=== PATIENT | female | born 1955 | race Caucasian/White ===

== ENCOUNTER 2016-04-30 12:42 | Emergency (ER) | payer OTHER ==
[~2016-04-30] VITALS: Ht 162.6 cm; Wt 90.7 kg
[~2016-04-30 12:42] MED LIST: ALEVE220 M1 PO; AMOXIL500 MG PO; ATENOLOL50 M1 PO; LOMOTIL 2.5-0.1 EACH PO; NASACORT A55 MCG/Ac1 NAS; PERCOCET 5-3251 EACH PO; PRIMIDONE50 M1 PO; ROBITUSSIN W/CO10 ML PO; TRAMADOL50 MG PO; VENLAFAXINE H37.5 M3 PO; ZITHROMAX Z-PA250 M1 PO
[2016-04-30 13:41] LABS: ABSOLUTE BASOPHIL COUNT 0 /CUMM (0.0-0.2); ABSOLUTE EOSINOPHIL COUNT 0.1 /CUMM (0.0-0.7); ABSOLUTE GRANULOCYTE CT 4.7 /CUMM (1.4-6.5); ABSOLUTE LYMPH COUNT 2.6 /CUMM (1.2-3.4); ABSOLUTE MONOCYTE COUNT 0.5 /CUMM (0.10-0.60); BASOPHIL % 0.5 % (0.0-2.0); EOSINOPHIL % 1.5 % (0-5); GRANULOCYTE % 59.2 % (42.2-75.2); HEMATOCRIT 40.6 % (37-47); MEAN CORPUSCULAR HGB 30.1 PG (27.0-31.0); MEAN CORPUSCULAR HGB CONC 33.1 G/DL (33.0-37.0); MEAN CORPUSCULAR VOLUME 90.9 FL (81.0-99.0); MEAN PLATELET VOLUME 8.3 FL (7.4-10.4); PLATELET COUNT 243 /CUMM (130-400); RBC DISTRIBUTION WIDTH 12.8 % (11.5-14.5); RED BLOOD CELL CT 4.46 /CUMM (4.20-5.40); WHITE BLOOD CELL COUNT 7.9 /CUMM (4.8-10.8)
--- NOTE | 2016-04-30 13:49 | ED DYSPNEA/ASTHMA COMPLAINT ---
History of Present Illness General Chief Complaint: Dyspnea (COPD, CHF, Other) Stated Complaint: PT IS HAVING A PROBLEM BREATHING Source: patient Exam Limitations: no limitations Vital Signs & Intake/Output Vital Signs & Intake/Output Vital Signs Date Time Temp Pulse Resp B/P Pulse O2 O2 Flow FiO2 Ox Delivery Rate 04/30 1435 93 04/30 1430 98.0 84 20 134/78 92 Room Air 04/30 1401 97.0 80 20 133/78 96 Nasal 1.0L Cannula 04/30 1349 98 Nasal 1.0L Cannula 04/30 1336 97.9 78 20 167/85 95 Nasal 2.0L Cannula 04/30 1329 75 22 97 Nasal 2.0L Cannula 04/30 1321 97.0 80 16 138/65 98 Room Air 04/30 1247 97.1 96 20 180/100 90 Room Air Allergies Coded Allergies: venom-honey bee (bee venom (honey bee)) (Severe, THROAT SWELLING 12/06/15) Reconcile Medications Atenolol 50 MG TABLET 1 TAB PO DAILY HEART/BP (Reported) Ipratropium/Albuterol Sulfate (Combivent Respimat Inhal [place]) 20 MCG-100 MCG/ ACTUATION MIST.INHAL 2-4 INH INH Q6 PRN trouble breathing Naproxen Sodium (Aleve) 220 MG CAPSULE 1 CAP PO PRN PAIN (Reported) Prednisone (Deltasone) 20 MG TABLET 3 TAB PO DAILY TROUBLE BREATHING BEGIN TOMORROW Venlafaxine HCl 37.5 MG TABLET 1 TAB PO DAILY ANXIETY/PANIC ATTACKS (Reported ) Triage Note: PT STATES THAT SHE HAS HAD A COUGH FOR ABOUT 3 MONTHS , NON PRODUCTIVE, STATES THAT ABOUT 1 HOUR AGO SHE BECAME VERY SOB AND HAS NOT BEEN ABLE TO CATCH HER BREATH, DENIES CP. O2 SAT 90 % ON RA. Triage Nurses Notes Reviewed? yes Onset: UNSURE IF GRADUAL OR SUDDEN Duration: week(s):, continues in ED, getting worse, intermittent HPI: Patient presents for evaluation of worsening dyspnea. Patient states she has had a nonproductive cough for the past few months. Roughly 1 hour prior to arrival patient states she had sudden increase in her shortness of breath, it becoming severe. Patient states there was no unusual exertion at the time she was simply engaging in ordinary daily activities. SHe denies any associated chest pain. Past History Travel History Traveled to [place] past 21 day No Medical History Any Pertinent Medical History? 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 FH: lung cancer MOTHER, . FH: Alzheimers disease SISTER FH: lupus Hx Contributory? No Review of Systems Review of Systems Constitutional: Reports: no symptoms. EENTM: Reports: no symptoms. Respiratory: Reports: see HPI. Cardiovascular: Reports: no symptoms. GI: Reports: no symptoms. Genitourinary: Reports: no symptoms. Musculoskeletal: Reports: no symptoms. Skin: Reports: no symptoms. Neurological/Psychological: Reports: no symptoms. Hematologic/Endocrine: Reports: no symptoms. Immunologic/Allergic: Reports: no symptoms. All Other Systems: Reviewed and Negative Physical Exam Physical Exam Respiratory: SEE BELOW Comments: Gen.: Well-nourished, well-developed, no acute respiratory distress. Head: Normocephalic, atraumatic. Eyes: Normal inspection bilaterally Ears: Normal inspection bilaterally Nose: Normal inspection Throat/mouth : Moist mucosa Neck: Supple, full range of motion, no goiter Heart: Regular rate and rhythm, no murmurs rubs or gallops Lungs: Clear to auscultation bilaterally with normal air entry Chest: Nontender Back: Normal range of motion Abdomen: Soft, nontender, nondistended, normal bowel sounds Extremities: Normal range of motion grossly, equal radial pulses, no cyanosis clubbing or edema Neurologic: Cranial nerves grossly intact, speech is clear Skin: warm and dry Psychiatric: Calm, cooperative, no apparent delusions or hallucinations Core Measures ACS in differential dx? No Severe Sepsis Present: No Septic Shock Present: No Progress Differential Diagnosis: asthma, bronchitis, CHF, COPD, pneumonia Plan of Care: Orders Procedure Date/time Status Telemetry/Rubber Turner 04/30 1321 Active TROPONIN LEVEL 04/30 1321 Complete MAGNESIUM 04/30 1321 Complete CBC WITHOUT DIFFERENTIAL 04/30 1321 Complete B-TYPE NATRIURETIC PEP (BNP) 04/30 1321 Complete BASIC METABOLIC PANEL 04/30 1321 Complete EKG 04/30 1302 Active Laboratory Tests 04/30/16 1324: Anion Gap 12, Estimated GFR > 60, BUN/Creatinine Ratio 26.7 H, Glucose 140 H, Calcium 9.8, Magnesium 1.5 L, Troponin I < 0.01, Ebp-N-Bqhorneiizi Pept 334 H, CBC w Diff NO MAN DIFF REQ, RBC 4.46, MCV 90.9, MCH 30.1, RDW 12.8, MPV 8.3, Gran % 59.2, Lymphocytes % 33.0, Monocytes % 5.8, Eosinophils % 1.5, Basophils % 0.5, Absolute Granulocytes 4.7, Absolute Lymphocytes 2.6, Absolute Monocytes 0.5 , Absolute Eosinophils 0.1, Absolute Basophils 0, PUBS MCHC 33.1 Initial ED EKG: NSR, rate (74), no ST T wave changes Comments: 04/30/2016 2:42:12 PM I have updated Darlyn on her test results. She is feeling better after her nebulizer treatment. Room air oxygen saturation 95% and reevaluation of the lungs shows improved air entry and resolution of wheezing. Patient's nurse will check up and ambulatory pulse ox. Patient will have another nebulizer treatment in the emergency department if she becomes hypoxic with ambulation. Otherwise plan change to Combivent inhaler with albuterol as rescue and five-day course of steroids. 04/30/2016 2:55:58 PM Darlyn maintained at 93% oxygen saturation while ambulating and felt no dyspnea. Departure Departure Disposition: HOME OR SELF CARE Condition: Stable Clinical Impression Primary Impression: Bronchospasm Referrals: GINI WALKER MD (PCP/Family) Additional Instructions: Combivent inhaler as prescribed. Use your albuterol inhaler in between Combivent doses if necessary. Prednisone as prescribed. Follow-up with your primary care physician tomorrow for reevaluation. Return if any concerns or sudden worsening. Please note that there might be incidental findings in your evaluation that are unrelated to the current emergency department visit. Please notify your primary care doctor about this emergency department visit in order to obtain and review all of the testing performed so that these incidental findings can be monitored as needed. If you had an x-ray performed, please understand that some fractures may not be seen on the initial set of x-rays. If your symptoms persist you might need a repeat set of x-rays to check for such a fracture. If you had a laceration evaluated, please understand that foreign bodies such as glass or wood may not be visible to the naked eye or on plain x-rays. If the wound becomes red, swollen, increasingly more painful or if there is any drainage from the wound, please have it reevaluated by a physician for the possibility of a retained foreign body. Thank you for choosing the [facility] for your care. It was a pleasure to serve you today. Bernardo Edwards M.D. [facility] Departure Forms: Customer Survey General Discharge Information Prescriptions: Current Visit Scripts Ipratropium/Albuterol Sulfate (Combivent Respimat Inhal [place]) 2-4 INH INH Q6 PRN trouble breathing #1 INHAL Prednisone (Deltasone) 3 TAB PO DAILY #12 TAB BEGIN TOMORROW Critical Care Note Critical Care Note Critical Care Time: non-applicable
--- NOTE | 2016-04-30 14:14 | RADIOLOGY REPORT ---
EXAMINATION: XR PORTABLE CHEST CLINICAL INFORMATION: COPD, CHF, mass, infiltrate, effusion. Cough for months, dyspnea. COMPARISON: None TECHNIQUE: Portable AP view of the chest was obtained. FINDINGS: The cardiomediastinal silhouette is within normal limits. Lung volumes are low. The lungs are clear with no consolidation or effusion. IMPRESSION: Low lung volumes. No acute findings.
[2016-04-30 14:30] VITALS: BP 134/78
[2016-04-30] MEDS ORDERED: DELTASONE20 MG PO (15:04)
[2016-04-30] MEDS ORDERED: COMBIVENT RESPIM4 GM INH (15:04)
== END 2016-04-30 15:17 ==
LOC: ERH 12:42
PROVIDERS: Emergency Medicine
DX: J98.01 Acute bronchospasm (principal)
CPT/HCPCS: 1263; 93005; 93010; 96374; J2930

== ENCOUNTER 2016-07-30 14:19 | Emergency (ER) | payer OTHER ==
[~2016-07-30] VITALS: Ht 160 cm; Wt 79.4 kg
[~2016-07-30 14:19] MED LIST changes: +COMBIVENT RESPIM4 GM INH; +DELTASONE20 MG PO
--- NOTE | 2016-07-30 15:04 | RADIOLOGY REPORT ---
EXAMINATION: XR KNEE, LEFT CLINICAL INFORMATION: Pain for one week status post fall COMPARISON: None TECHNIQUE: Four views of the left knee. FINDINGS: No acute fracture or subluxation. Mild medial compartment joint space narrowing. No joint effusion. Varicose veins are noted superficially. IMPRESSION: No acute osseous abnormality. Mild medial compartment joint space narrowing.
--- NOTE | 2016-07-30 15:43 | ED UPPER/LOWER EXTREMITY COMPL ---
History of Present Illness General Chief Complaint: Lower Extremity Injury Stated Complaint: LFT KNEE INJURY Source: patient Exam Limitations: no limitations Vital Signs & Intake/Output Vital Signs & Intake/Output Vital Signs Date Time Temp Pulse Resp B/P B/P Pulse O2 O2 Flow FiO2 Mean Ox Delivery Rate 07/30 1551 96.8 65 12 145/78 95 Room Air 07/30 1427 97.6 91 14 146/89 95 Room Air Allergies Coded Allergies: venom-honey bee (bee venom (honey bee)) (Severe, THROAT SWELLING 12/06/15) Reconcile Medications Atenolol 50 MG TABLET 1 TAB PO DAILY HEART/BP (Reported) Ipratropium/Albuterol Sulfate (Combivent Respimat Inhal [place]) 20 MCG-100 MCG/ ACTUATION MIST.INHAL 2-4 INH INH Q6 PRN trouble breathing Meloxicam (Mobic) 15 MG TABLET 1 TAB PO DAILY PRN PAIN/INFLAMMATION Naproxen Sodium (Aleve) 220 MG CAPSULE 1 CAP PO PRN PAIN (Reported) Prednisone (Deltasone) 20 MG TABLET 3 TAB PO DAILY TROUBLE BREATHING BEGIN TOMORROW Venlafaxine HCl 37.5 MG TABLET 1 TAB PO DAILY ANXIETY/PANIC ATTACKS (Reported ) Triage Note: 61 Y/O FEMALE FELL ON IT IN MARCH, AGAIN 1 WEEK AGO AND AGAIN THIS PAST WEDNESDAY. REPORTS SWELLING AROUND KNEECAP AND PAIN DOWN LEG. SMALL SCABBED ABRASIONS NOTED TO KNEECAP. DECLINES OFFER OF MEDS, REQUESTING XRAY Triage Nurses Notes Reviewed? yes Onset: Abrupt Duration: constant Timing: recent history Severity: moderate Severity Numbers: 5 Method of Injury: direct blow, fall HPI: Patient is a 61-year-old female who presents emergency ROOM stating that last week she was wearing platform shoes in which she lost her footing and fell forward striking the left anterior aspect of her knee to the ground. Patient states that 2 days ago a similar event happened where she fell again tripped on her feet where she again complained of localized left anterior knee pain. Patient did however ambulate to the emergency room. (JOHN DAMON,NAIN) Past History Travel History Traveled to [place] past 21 day No Medical History Any Pertinent Medical History? 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 FH: lung cancer MOTHER, . FH: Alzheimers disease SISTER FH: lupus Hx Contributory? No (NAIN DUNNE) Review of Systems Review of Systems Constitutional: Reports: no symptoms. EENTM: Reports: no symptoms. Respiratory: Reports: no symptoms. Cardiovascular: Reports: no symptoms. Gastrointestinal/Abdominal: Reports: no symptoms. Genitourinary: Reports: no symptoms. Musculoskeletal: Reports: see HPI, joint pain. Skin: Reports: no symptoms. Neurological/Psychological: Reports: no symptoms. Hematologic/Endocrine: Reports: no symptoms. Immunological: Reports: no symptoms. All Other Systems: Reviewed and Negative (NAIN DUNNE) Physical Exam Physical Exam General Appearance: no apparent distress, alert, comfortable, obese Neurologic/Tendon: normal sensation, normal motor functions, normal tendon functions, responds to pain, no evidence tendon injury, no pulse deficit Comments: Well-developed well-nourished no apparent distress. HEENT: Atraumatic, extraocular motion intact Neck: Supple, no lymphadenopathy Back: Nontender Respiratory: No respiratory distress Extremities: Left hip normal inspection nontender straight leg raise was performed without pain Left knee mild skin abrasion noted patellar point tenderness noted, full active range of motion noted negative valgus stress test negative varus stress test negative anterior drawer test negative posterior drawer test Left lower extremity dermatomes intact pedal pulse +2 Neuro: Alert and oriented x3 Psych: Mood affect normal, normal memory normal judgment. (NAIN DUNNE) Progress Differential Diagnosis: arterial insufficiency, compartment syndrome, contusion, dislocation, DVT, fracture, gout, septic arthritis, sprain, tendon injury Plan of Care: No osseous injury noted FROM XRAYS, SKIN intact no concern of ligamentous injury. Patient had normal steady gait on discharge. However patient was given a cane for fall prevention William wrap was applied to left knee prepatellar neurovascular was intact Diagnostic Imaging: Viewed by Me: Radiology Read. Radiology Impression: no acute abnormality, no fracture Comments: PATIENT: INEZ EDWARDS PRESENT AGE: 61 PATIENT ACCOUNT NO: [id number] : 55 LOCATION: [facility] ORDERING PHYSICIAN: GISELA HERNANDEZ MD SERVICE DATE: 07/30/16 EXAM TYPE: RAD - XRY-KNEE COMPLETE LEFT EXAMINATION: XR KNEE, LEFT CLINICAL INFORMATION: Pain for one week status post fall COMPARISON: None TECHNIQUE: Four views of the left knee. FINDINGS: No acute fracture or subluxation. Mild medial compartment joint space narrowing. No joint effusion. Varicose veins are noted superficially. IMPRESSION: No acute osseous abnormality. Mild medial compartment joint space narrowing. DICTATED BY: CARLOS SCANLON,YAMILET DATE/TIME DICTATED:07/30/161458 RADIOLOGY CT TECHNOLOGIST:JAIRO (NAIN DUNNE) Departure Departure Disposition: HOME OR SELF CARE Condition: Stable Clinical Impression Primary Impression: Left knee pain Referrals: GINI WALKER MD (PCP/Family) Additional Instructions: As discussed begin using the William wrap for swelling. Begin icing the area directly 20 minutes every 2 hours. Begin using the prescription of a cane for fall prevention, this prescription was given obtained at a caregivers non [facility] to her. Begin the prescription on meloxicam for pain and inflammation, per prescription is waiting at [facility]. If no better in one week follow-up with orthopedic Dr. Hui. If symptoms worsen return to emergency room Departure Forms: Customer Survey General Discharge Information Prescriptions: Current Visit Scripts Meloxicam (Mobic) 1 TAB PO DAILY PRN PAIN/INFLAMMATION #15 TAB (NAIN DUNNE) PA/KICK PLATE INSTALLER Co-Sign Statement Statement: ED Attending supervision documentation- [] I saw and evaluated the patient. I have also reviewed all the pertinent lab results and diagnostic results. I agree with the findings and the plan of care as documented in the PA's/KICK PLATE INSTALLER's documentation. [X] I have reviewed the ED Record and agree with the PA's/KICK PLATE INSTALLER's documentation. [] Additions or exceptions (if any) to the PAs/KICK PLATE INSTALLER's note and plan are summarized below: [] (DAVID SCANLON,GISELA Sheets)
[2016-07-30 15:51] VITALS: BP 145/78
[2016-07-30] MEDS ORDERED: MOBIC15 M1 PO (16:14)
== END 2016-07-30 16:25 ==
LOC: ERH 14:19
DX: M25.562 Pain in left knee (principal)
CPT/HCPCS: 73562-LT

== ENCOUNTER 2017-03-08 15:03 | Inpatient (IN) | payer OTHER ==
[~2017-03-08] VITALS: Ht 157.5 cm; Wt 81.8 kg
[~2017-03-08 15:03] MED LIST changes: +CLOTRIMAZOLE15 GM TOP; +CYCLOBENZAPRINE10 M1 PO; +DIFLUCAN150 M1 PO; +HYDROXYZINE PAM25 M2 PO; +IBUPROFEN400 M1 PO; +KEFLEX500 M1 PO; +MOBIC15 M1 PO
--- NOTE | 2017-03-08 15:27 | ED PSYCHIATRIC COMPLAINT ---
History of Present Illness General Chief Complaint: Psychiatric Related Complaint Stated Complaint: BIBA FOR PSYCH EVAL Source: patient Exam Limitations: no limitations Vital Signs & Intake/Output Vital Signs & Intake/Output Vital Signs Date Time Temp Pulse Resp B/P B/P Pulse O2 O2 Flow FiO2 Mean Ox Delivery Rate 03/09 0848 97.5 70 18 164/72 03/09 0817 70 18 164/72 98 Room Air 03/09 0633 97.5 72 18 199/788 100 Room Air 03/08 1959 99.5 69 9 138/78 99 Room Air 03/08 1620 Room Air 03/08 1512 99.0 87 19 162/80 98 Room Air ED Intake and Output 03/09 0000 03/08 1200 Intake Total Output Total Balance Patient 180 lb Weight Weight Reported by Patient Measurement Method Allergies Coded Allergies: venom-honey bee (bee venom (honey bee)) (Severe, THROAT SWELLING 12/06/15) Triage Note: PT D[facility]ELJohnny FROM [facility]. [facility] AND [facility], PT IS CURRENTLY HOMELESS. WHEN PT WENT BACK TO GET HER MEDS THE MEDS WERE GONE AND SHE HAS NOT TAKEN ANY MEDS FOR 1 WEEK. PT SON 1 WEEK AGO AND PT IS UPSET THAT SHE DOES NOT KNOW INFO FOR SERVICE AND NO ONE IS TELLING HER ANYTHING. PT IS HI TOWARDS THE PEOPLE THAT WONT GIVE HER INFO AND HER NEIGHBORS. PT DENIES SI. PT STATES SHE NEEDS HELP TO GET BACK TAKING HER MEDS AND HELP FOR PLACEMENT IN A HOME. Triage Nurses Notes Reviewed? yes Onset: Abrupt Duration: day(s): (2), changing over time, continues in ED Timing: single episode today Severity: moderate, severe Associated Symptoms: anxiety, homicidal ideation LMP (ages 10-50): post menopausal : No Patient currently breastfeeds: No HPI: 61-year-old female past medical history of essential tremor, hypertension, anxiety, panic disorder Rout in by ambulance for a psychiatric evaluation. Patient states that she was recently evicted from her house. Patient was living with her son who kicked her out of her house. Her son 6 days ago so patient moved back into her house and then she was evicted by her . Patient is currently homeless and very upset about the of her son. She does not like the way the state is being handled. She made homicidal statements towards the people handling her son estate. She also reports that she lost her medications and has not taken anything in over a week. She denies any suicidal ideation or hallucinations. She does report some substernal chest tightness that has been present for the past several days since this is been going on. It is not worsened on exertion. No shortness of breath hemoptysis lower extremity edema. No significant cardiac history. She does not drink smoke or use any drugs. Patient is not papered she is here voluntarily. (Boyd Rausch) Reconcile Medications Atenolol 50 MG TABLET 1 TAB PO DAILY HEART/BP (Reported) Cholecalciferol (Vitamin D3) (Vitamin D) 2,000 UNIT CAPSULE 2,000 IU PO DAILY Vitamin D Supplement (Reported) Cyclobenzaprine HCl 10 MG TABLET 1 TAB PO TID back pain Fluticasone Propionate 50 MCG/ACTUATION SPRAY.SUSP 2 SPRAY NASB DAILY sinus problems (Reported) Hydroxyzine Pamoate 25 MG CAPSULE 1 CAP PO BID PRN ANXIETY/INSOMNIA (Reported ) Ibuprofen 400 MG TABLET 1 TAB PO TID back pain Naproxen Sodium (Aleve) 220 MG CAPSULE 1 CAP PO PRN PAIN (Reported) Omeprazole 20 MG CAPSULE.DR 20 MG PO DAILY GERD (Reported) Venlafaxine HCl 37.5 MG TABLET 1 TAB PO DAILY ANXIETY/PANIC ATTACKS (Reported ) (Zi Epstein MD) Past History Travel History Traveled to [place] past 21 day No Medical History Any Pertinent Medical History? 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 FH: lung cancer MOTHER, . FH: Alzheimers disease SISTER FH: lupus Hx Contributory? No (Boyd Rausch) Review of Systems Review of Systems Constitutional: Reports: no symptoms. EENTM: Reports: no symptoms. Respiratory: Reports: no symptoms. Cardiovascular: Reports: see HPI, chest pain. GI: Reports: no symptoms. Genitourinary: Reports: no symptoms. Musculoskeletal: Reports: no symptoms. Skin: Reports: no symptoms. Neurological/Psychological: Reports: see HPI, anxiety, other (HI). Hematologic/Endocrine: Reports: no symptoms. Immunologic/Allergic: Reports: no symptoms. All Other Systems: Reviewed and Negative (Boyd Rausch) Physical Exam Physical Exam General Appearance: well developed/nourished, no apparent distress, alert, awake Head: atraumatic, normal appearance Eyes: Bilateral: normal appearance, PERRL, EOMI. Ears, Nose, Throat: normal pharynx, normal ENT inspection, hearing grossly normal Neck: normal inspection, supple, full range of motion Respiratory: normal breath sounds, chest non-tender, no respiratory distress Cardiovascular: regular rate/rhythm, normal peripheral pulses Gastrointestinal: normal bowel sounds, soft, non-tender, no organomegaly Extremities: normal range of motion Neurological/Psychiatric: no motor/sensory deficits, awake, agitated, alert, anxious Appearance/Memory/Insight: disheveled, impaired insight Behavoir/Eye Contact/Speech: cooperative, increased rate of speech Thoughts/Hallucinations: normal thought pattern, no apparent hallucination Skin: intact, normal color, warm/dry SAD PERSONS Done? patient not suicidal (Boyd Rausch) Progress Differential Diagnosis: dementia, drug intoxication, drug overdose, drug withdrawal, electrolyte abnormality, ACUTE CORONARY SYNDROME Plan of Care: Orders Procedure Date/time Status Regular Diet 03/09 L Active Continuous Observation Monitor 03/09 1900 Active Continuous Observation Monitor 03/09 1500 Active Continuous Observation Monitor 03/09 1100 Active Patient Data - inpatient psych 03/09 1016 Active Admit to inpatient psych 03/09 1016 Active Continuous Observation Monitor 03/09 0700 Active Vital Signs 03/09 UNK Active Alternative Nursing Therapy 03/09 UNK Active Activity/Ambulation 03/09 UNK Active Regular Diet 03/08 D Complete Add-on Test (ER Only) 03/08 1551 Active EKG 03/08 1551 Active Continuous Observation Monitor 03/08 1528 Active TROPONIN LEVEL 03/08 1524 Complete MAGNESIUM 03/08 1524 Complete URINE DRUG SCREEN FOR ER ONLY 03/08 1508 Complete URINALYSIS 03/08 1508 Complete ETHANOL 03/08 1508 Complete COMPREHENSIVE METABOLIC PANEL 03/08 1508 Complete CBC WITHOUT DIFFERENTIAL 03/08 1508 Complete ED CRISIS PSYCH CONSULT 03/08 1508 Active Current Medications Sig/Kirill Start time Last Medication Dose Stop Time Status Admin Omeprazole 20 MG DAILY AC 03/10 0700 UNVr (Prilosec) Acetaminophen 650 MG Q6P PRN 03/09 1030 AC (Tylenol) Al Hydroxide/Mg 30 ML Q4-6 PRN PRN 03/09 1030 AC Hydroxide (Maalox Plus) Benztropine Mesylate 1 MG Q6P PRN 03/09 1030 UNVr (Cogentin 1 MG Tablet) Benztropine Mesylate 1 MG Q6P PRN 03/09 1030 UNVr (Cogentin) Gabapentin 300 MG Q6P PRN 03/09 1030 UNVr (Neurontin) Haloperidol 5 MG Q6P PRN 03/09 1030 AC (Haldol) Haloperidol 5 MG Q6P PRN 03/09 1030 UNVr (Haldol) Lorazepam 2 MG Q6P PRN 03/09 1030 UNVr (Ativan) Magnesium Hydroxide 30 ML AT BEDTIME NEED.. 03/09 1030 AC (Milk Of Magnesia) Nicotine 2 MG Q2P PRN 03/09 1030 UNVr (Nicotine) Trazodone HCl 50 MG AT BEDTIME NEED.. 03/09 1030 UNVr (Desyrel) Fluticasone 2 SPRAY DAILY 03/09 1024 UNVr Propionate (Flonase) Non-Formulary 1 UNIT DAILY 03/09 1022 UNVr Medication (NON FORMULARY) Atenolol 50 MG DAILY 03/09 1000 UNVr 03/09 (Tenormin) 0848 Venlafaxine HCl 37.5 MG DAILY 03/09 1000 UNVr 03/09 (Effexor) 0847 Laboratory Tests 03/08/17 1623: Urine Opiates Screen < 100.00, Methadone Screen < 40, Barbiturate Screen < 60, Ur Phencyclidine Scrn < 6.00, Amphetamines Screen < 100, U Benzodiazepines Scrn < 85, Urine Cocaine Screen < 50, Urine Cannabis Screen < 5.00, Urine Color STRAW , Urine Clarity CLEAR, Urine pH 6.0, Ur Specific Blanchard 1.010, Urine Protein NEG, Urine Ketones NEG, Urine Nitrite NEG, Urine Bilirubin NEG, Urine Urobilinogen 0.2, Ur Leukocyte Esterase NEG, Ur Microscopic EXAM NOT REQUIRED, Urine Hemoglobin NEG, Urine Glucose NEG 03/08/17 1524: Anion Gap 14, Estimated GFR > 60, BUN/Creatinine Ratio 21.4, Glucose 114 H, Calcium 9.8, Magnesium 1.8, Total Bilirubin 0.2, AST 26, ALT 31, Alkaline Phosphatase 73, Troponin I 0.02, Total Protein 7.7, Albumin 4.4, Globulin 3.3, Albumin/Globulin Ratio 1.3, CBC w Diff NO MAN DIFF REQ, RBC 4.28, MCV 89.8, MCH 30.2, RDW 13.2, MPV 8.3, Gran % 80.5 H, Lymphocytes % 13.6 L, Monocytes % 5.0, Eosinophils % 0.6, Basophils % 0.3, Absolute Granulocytes 8.1 H, Absolute Lymphocytes 1.4, Absolute Monocytes 0.5, Absolute Eosinophils 0.1, Absolute Basophils 0, PUBS MCHC 33.6, Serum Alcohol < 10.0 Patient seen and evaluated. She made homicidal statements against the people in charge of her son's estate. She currently denies suicidal ideation. No drug or alcohol use. We'll check basic labs including an EKG and troponin due to patient reporting chest pressure for the past several days. Blood work does not show any acute findings. EKG and chest x-ray are negative. Patient states that the chest tightness has been constant for several days. She has no cardiac history. Patient is here voluntarily but will be held overnight for reevaluation and possibly admission in the morning. Spoke with crisis they do not recommend restarting any medications that she has been off them for greater than a week. Patient signed out to Dr. Fabian pending crisis eval Initial ED EKG: normal sinus rhythm, LEFT ATRIAL ABN Hand-Off Endorsed To: Heriberto Fabian MD Endorsed Time: 2100 Pending: consult (CRISIS) (Boyd Rausch) Hand-Off Endorsed To: Zi Epstein MD Endorsed Time: 0700 Pending: consult (Heriberto Fabian MD) Comments: To be hospitalized on [facility] (Zi Epstein MD) Departure Departure Disposition: STILL A PATIENT Condition: Stable Referrals: Heriberto Shepherd MD (PCP/Family) (Boyd Rausch) PA/DIESEL POWERPLANT SUPERVISOR Co-Sign Statement Statement: ED Attending supervision documentation- [X] I saw and evaluated the patient. I have also reviewed all the pertinent lab results and diagnostic results. I agree with the findings and the plan of care as documented in the PA's/DIESEL POWERPLANT SUPERVISOR's documentation. [X] I have reviewed the ED Record and agree with the PA's/DIESEL POWERPLANT SUPERVISOR's documentation. [] Additions or exceptions (if any) to the PAs/DIESEL POWERPLANT SUPERVISOR's note and plan are summarized below: [] (Caren SCANLON,Heriberto Sheets) Departure Time of Disposition: 1054 Clinical Impression Primary Impression: Homicidal ideation Secondary Impressions: Depression Departure Forms: General Discharge Information Psych Admission Note Psychiatric Admission: I have seen and evaluated INEZ EDWARDS. I have also reviewed all the pertinent lab results and diagnostic results. INEZ EDWARDS will be admitted to our inpatient Psychiatric unit for treatment and care. PA/DIESEL POWERPLANT SUPERVISOR Co-Sign Statement Statement: ED Attending supervision documentation- x I saw and evaluated the patient. I have also reviewed all the pertinent lab results and diagnostic results. I agree with the findings and the plan of care as documented in the PA's/DIESEL POWERPLANT SUPERVISOR's documentation. [] I have reviewed the ED Record and agree with the PA's/DIESEL POWERPLANT SUPERVISOR's documentation. [] Additions or exceptions (if any) to the PAs/DIESEL POWERPLANT SUPERVISOR's note and plan are summarized below: [] (Tete SCANLON,Zi)
[2017-03-08 15:35] LABS: ABSOLUTE BASOPHIL COUNT 0 /CUMM (0.0-0.2); ABSOLUTE EOSINOPHIL COUNT 0.1 /CUMM (0.0-0.7); ABSOLUTE GRANULOCYTE CT 8.1 /CUMM (1.4-6.5); ABSOLUTE LYMPH COUNT 1.4 /CUMM (1.2-3.4); ABSOLUTE MONOCYTE COUNT 0.5 /CUMM (0.10-0.60); BASOPHIL % 0.3 % (0.0-2.0); EOSINOPHIL % 0.6 % (0-5); GRANULOCYTE % 80.5 % (42.2-75.2); HEMATOCRIT 38.5 % (37-47); MEAN CORPUSCULAR HGB 30.2 PG (27.0-31.0); MEAN CORPUSCULAR HGB CONC 33.6 G/DL (33.0-37.0); MEAN CORPUSCULAR VOLUME 89.8 FL (81.0-99.0); MEAN PLATELET VOLUME 8.3 FL (7.4-10.4); PLATELET COUNT 261 /CUMM (130-400); RBC DISTRIBUTION WIDTH 13.2 % (11.5-14.5); RED BLOOD CELL CT 4.28 /CUMM (4.20-5.40); WHITE BLOOD CELL COUNT 10.1 /CUMM (4.8-10.8)
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
[2017-03-09] MEDS ORDERED: VITAMIN D2000 UNIT PO (10:20)
[2017-03-09] MEDS ORDERED: FLUTICASONE PRO16 GM NASB (10:23)
[2017-03-09] MEDS ORDERED: OMEPRAZOLE20 M2 PO (10:23)
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
[2017-03-09 12:38] VITALS: BP 176/88
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
[2017-03-09 16:02] VITALS: BP 172/80
[2017-03-09 19:43] VITALS: BP 139/79
[2017-03-10 07:51] VITALS: BP 144/89
--- NOTE | 2017-03-10 11:58 | CP SOUTH PROGRESS NOTE PSYCH ---
Psych (Inpt) Progress Note Progress Note Lorelei was ambulating with steady gait, she appears older than stated age She was friendly and cooperative She showed less anxiety today, visible chronic tremors (? Chorea due to Rheumatic fever in childhood ?) No abnormalities in her behavior talkative with pressure, she was not tearful today Depressed and anxious Denied suicidal ideation Denied homicidal Ideation Denied hallucinations Denied feeling paranoid Denied difficulties with thought organization Partial insight Impaired judgment Oriented to time place and person ?? cognitive impairment and ?? memory function (will re-assess once more stable) Impression and Plan: 61-year-old white female who presented to the emergency department on the recommendations of [facility] "I was having a breakdown" The patient's son unexpectedly 6 days ago. She reported that she has been homeless for some time and living in shelters. She was staying in her son's home for the last couple of days or so. She stated that her ex- is the executor of his estate and recently asked her to leave the house. Diagnoses: Unspecified mood disorder unspecified anxiety disorder Adjustment disorder with mixed anxiety and depression Treatment Plan Update: Continue inpatient psychiatric care Continue 15 minute checks Continue venlafaxine 37.5 mg daily PRN Ativan for anxiety and when necessary Ativan for sleep Continue nursing assessments once a shift in Group therapy Milieu therapy Social work to obtain collateral information and start the process of aftercare planning and discharge planning Psychiatrist to evaluate patient on a daily basis.
--- NOTE | 2017-03-10 12:06 | IP INCIDENTAL NOTE PSYCH ---
Incidental Note Notation: I called [facility] in [place], attempted to leave a voice mail for Sandee Carlin APRN (as she is not in today) but her voicemail was full.
[2017-03-10 12:39] VITALS: BP 132/61
--- NOTE | 2017-03-10 14:22 | History & Physical ---
General Information and HPI History of Present Illness: This middle-aged female was admitted to the hospital and sent from outpatient clinic because of worsening mental status she admits that she was not taking medicine for more than the week and she was felt to be decompensated enough to be admitted to the hospital and sent to the emergency room from [facility] she admits that she has been to upset because of some family problems since her son recently and her ex- and other some taking care of his affairs and she is not involved in the part that is making her motor upset.. She reports that she has had high blood pressure for many years and sees a physician in outpatient clinic who was planning to change her atenolol to some other medicine because it was not working for her and she had a lot of tremors that the beta gail was not helping with and therefore going to start some new medication in the future. She denies smoking cigarettes and reports that she does not drink any significant amount of alcohol. She claims she had 3 children and one has recently him to one alive. She is and is not employed at this time. Allergies/Medications Allergies: Coded Allergies: venom-honey bee (bee venom (honey bee)) (Severe, THROAT SWELLING 12/06/15) Home Med list Atenolol 50 MG TABLET 1 TAB PO DAILY HEART/BP (Reported) Cholecalciferol (Vitamin D3) (Vitamin D) 2,000 UNIT CAPSULE 2,000 IU PO DAILY Vitamin D Supplement (Reported) Cyclobenzaprine HCl 10 MG TABLET 1 TAB PO TID back pain Fluticasone Propionate 50 MCG/ACTUATION SPRAY.SUSP 2 SPRAY NASB DAILY sinus problems (Reported) Hydroxyzine Pamoate 25 MG CAPSULE 1 CAP PO BID PRN ANXIETY/INSOMNIA (Reported ) Ibuprofen 400 MG TABLET 1 TAB PO TID back pain Naproxen Sodium (Aleve) 220 MG CAPSULE 1 CAP PO PRN PAIN (Reported) Omeprazole 20 MG CAPSULE.DR 20 MG PO DAILY GERD (Reported) Venlafaxine HCl 37.5 MG TABLET 1 TAB PO DAILY ANXIETY/PANIC ATTACKS (Reported ) Past History Travel History Traveled to [place] past 21 day No Medical History Neurological: NON ESSENTIAL TREMORS EENT: cataracts, glaucoma Cardiovascular: hypertension Respiratory: NONE Gastrointestinal: NONE Hepatic: NONE Renal: NONE Musculoskeletal: NONE Psychiatric: anxiety, PANIC ATTACKS Endocrine: NONE Blood Disorders: NONE Cancer(s): NONE 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 FH: lung cancer MOTHER, . FH: Alzheimers disease SISTER FH: lupus Psychosocial History Where do you live? Home Employment History Employment Unemployed Profession/Employer [employer] Review of Systems Review of Systems Constitutional: Denies: no symptoms. EENTM: Denies: no symptoms. Cardiovascular: Denies: no symptoms. Respiratory: Denies: no symptoms. GI: Denies: no symptoms. Genitourinary: Denies: no symptoms. Musculoskeletal: Reports: joint pain, joint swelling (left knee hurts sometimes.). Denies: no symptoms. Skin: Denies: no symptoms. Neurological/Psychological: Reports: see HPI, anxiety, depressed, emotional problems. Hematologic/Endocrine: Denies: no symptoms. Immunologic/Allergic: Denies: no symptoms. Exam & Diagnostic Data Last 24 Hrs of Vital Signs/I&O Vital Signs Date Time Temp Pulse Resp B/P B/P Pulse O2 O2 Flow FiO2 Mean Ox Delivery Rate 03/10 1239 60 132/61 03/10 0801 71 144/89 03/10 0751 99.1 71 144/89 03/09 1943 99.0 63 139/79 03/09 1602 61 172/80 03/09 1438 98.5 60 18 176/88 Physical Exam General Appearance Alert, Oriented X3, Cooperative, No Acute Distress Skin No Rashes, No Breakdown, No Significant Lesion HEENT Atraumatic, PERRLA, EOMI, Mucous Membr. moist/pink Neck Supple, No JVD, No thryomegaly, +2 Carotid Pulse wo Bruit Lymphatic Cervical nl Cardiovascular Regular Rate, Normal S1, Normal S2, No Murmurs, Gallops, Rubs Lungs Clear to Auscultation, Normal Air Movement Abdomen Soft, No Tenderness, No Hepatospenomegaly, No Masses Neurological Exam Findings: Normal Gait, Normal Speech, Strength at 5/5 X4 Ext, Cranial Nerves 3-12 NL, Reflexes 2+, course tremors of both upper extremities present chronically. Cranial Nerves II through XII: Within normal limits and intact. Extremities No Clubbing, No Cyanosis, No Edema, left knee with brace on for instability. Assessment/Plan Assessment: This middle-aged female is admitted for worsening mental status and increased anxiety and agitation and was sent from outpatient clinic because she had not been taking her medication for a week or so. From a medical standpoint she has hypertension and coarse tremors for a long time and reports that time present medications atenolol was not controlling her blood pressure well and today the blood pressure is up again. We'll try her on propranolol long-acting which may help her anxiety as well as the tremor somewhat better than atenolol and monitor her blood pressure to see if it is sufficient. Otherwise her work including CBC and electrolytes liver functions are all essentially normal and EKG is normal sinus rhythm and grossly within normal limits without any changes from previous EKG. She does not need any other workup or treatment from medical standpoint. As Ranked By This Provider Problem List: 1. Depression 2. Left knee pain Miscellaneous Miscellaneous Documentation Attending Case Discussed With: Emery SCANLON,Iraj Primary Care Physician: Cora SCANLON,Heriberto Sams Patient sees these Specialists none Level of Patient Care: RL Mclaughlin Attending MD Review Statement Attending Statement Attending MD Statement: examined this patient, reviewed EMR data (avail), discussed with nursing Attending Assessment/Plan: This middle-aged female is admitted for worsening mental status and noncompliance with psychiatric medication. She has hypertension and coarse tremor for a long time and she claims its about 20 years and the present atenolol is not controlling after well. We'll try her on long-acting Inderal to see if controlled blood pressure and helps with a cold tremor as well as anxiety to some extent and see the response. She does not need any other workup or treatment from medical standpoint.
--- NOTE | 2017-03-10 15:47 | SOCIAL WORKER PROG NOTE PSYCH ---
Social Work Progress Note Progress Note Sonam presented as very pressured, loud, with a depressed irritable edge. She talked alot about the housing situation and current predicament she is in. She is very preoccupied with trying to get into her son's home. She told me her son who recently this past week, had evicted her 6 months ago. Since that time she has been in and out of shelters. She was discharged from [facility] due to slapping a child's hand and she reports she left [facility] due to multiple complaints about her. She stated she left her belongings including her medications there. She is hoping to obtain a steel layer to help her with getting the eviction lifted so she can return to the house. She feels the home is hers and that the belongings in the home should not be touched until things go through Probate Court. She stated her ex- has been going through things and selling things in the home. She feels he is being influenced by the tenants below. She stated she wants to kill them. She isn't as upset or angry with her ex-, but voices her displeasure and anger towards these tenants. When asked if she has access to weapons? She said no. I attempted to talk with her about her son's passing and if there were services, but all she would say was that he was still in the morgue and that her family most likely won't tell her what services will be arranged. I asked why she had been evicted by her son 6 months ago? She said "It was alot of things, he just didn't want Mommy involved." She has 2 other sons. One lives in [place] (Jaxon Caceres), she said she didn't know his number. She did recall his address. Her other son 's name is Robbie. She said Robbie "hates my guts." She talked about being in tx with Care. She see's Danish Hernandez for therapy and sees Sandee Carlin APRN for meds. I gave her some information on [place] [employer] and [employer] [place]. She signed a release for [facility], so I will get collateral from them.
[2017-03-10 16:34] VITALS: BP 138/66
[2017-03-10 19:56] VITALS: BP 129/72
[2017-03-11 07:38] VITALS: BP 141/92
--- NOTE | 2017-03-11 10:05 | SOCIAL WORKER PROG NOTE PSYCH ---
Social Work Progress Note Progress Note INEZ MANNING [id number] 1955 INEZ MANNING [id number] Pended Authorization # Client Authorization # Type of Request [id number] CONCURRENT Date of Admission/ Start of Services Requested From Submission Date 03/09/2017 03/11/2017 03/11/2017
--- NOTE | 2017-03-11 10:52 | CP SOUTH PROGRESS NOTE PSYCH ---
Psych (Inpt) Progress Note Progress Note Nursing Staff (Daija Cloud, RICKIE), Group and Activity Therapists, Social Work Staff (Alda Moreau, PLASTER WHITTLER and Nicky Henry, WALKER), and Psychiatrist discussed the patient's treatment and progress Lorelei was interviewed in my office. She was alert and talkative. She showed steady gait, she appears older than stated age. She was friendly and cooperative. She showed visible tremors (she said she had them almost all her life and saw many neurologists over the years). There were no abnormalities in her behavior. There was pressure in her speech. Depressed and anxious, Denied suicidal ideation, Denied homicidal Ideation, denied hallucinations, Denied feeling paranoid, Denied difficulties with thought organization, Partial insight , Impaired judgment, oriented to time place and person Yonis cognitive functioning seemed impaired including word finding /memory function (with several Whatchamacallit fillers) Assessment: Lorelei is a 61-year-old White female who presented to [facility] ED at the recommendations [facility]. The patient's son unexpectedly 6 days ago. She reported that she has been homeless for some time and living in shelters. She was staying in her son's home for the last couple of days or so. She stated that her ex- is the executor of his estate and recently asked her to leave the house. Diagnoses: Unspecified mood disorder Unspecified anxiety disorder Adjustment disorder with mixed anxiety and depression Treatment Plan Update: Increase Venlafaxine to 37.5 mg twice daily Continue inpatient psychiatric care Continue 15 minute checks Continue PRN Ativan for anxiety and when necessary Ativan for sleep Nursing assessments once a shift in Group therapy Milieu therapy Social work to obtain collateral information and start the process of aftercare planning and discharge planning A psychiatrist will evaluate the patients mental state and medications on a daily basis.
[2017-03-11 11:59] VITALS: BP 154/86
--- NOTE | 2017-03-11 13:29 | SOCIAL WORKER PROG NOTE PSYCH ---
Social Work Progress Note Progress Note Insight Leader met with Lorelei today in her room. She reported to be feeling drowsy and reported her depression to be an 8/10 (10 being the highest level of depression) and her anxiety as a 9/10. She stated that her anxiety was stemming from trying to acquire a furrier designer to help her fight a previous eviction from her son's house. She ruminated about her ex- and how he was being controlled by the downstairs neighbors at her recently son's house. Insight Leader asked her if she was feeling sad about her son's , to which she replied, "I am sad about how they treat me". She clarified that she was referring the neighbors and her when stating "they". Insight Leader asked Lorelei about the reasons for her eviction and why she and her son were estranged at the time of his . Her thought was that "they" (her sons) resented her because she was the "only female in the house" and that the disliked her because she "never did drugs, though they (her sons) did". Insight Leader asked what kind of drugs. Lorelei stated that they smoked marijuana when they were younger. Insight Leader told Lorelei that she would call [place] [employer] to ask if her case would be within the scope of their practice. Alda Moreau had given Lorelei the number to call yesterday, but Lorelei said that she was unable to do so because she "gets very panicky" when she has to speak to anyone in authority. A message was left for [place] [employer] by this proposal manager writer. Additionally, proposal manager writer left a message for Latoya Harden at [facility] to setup a referral for Lorelei. A message was also left for Judy Paz at [facility] with a request for a call back to discuss the possibility of Lorelei being referred to [facility]'s Crisis and Respite program in [place]. Update: 1. Judy Paz called back. She stated that she was waiting to hear from Lorelei's family independence case manager, Ghazala to hear about what kind alternate housing options that she had looked into thus far for Lorelei. Judy also stated that she would look into putting a referral into [facility]'s Crisis and Respite program and get back to Alda. 2. Insight Leader spoke with Latoya Harden at [facility]. Insight Leader was able to do the referral for [facility] via the phone with Latoya. She assigned Jose Bryant to Lorelei and stated that he would come to the unit to see Lorelei in the near future. 3. [employer] called back. The respresentative was able to look up Lorelei's eviction case in a database available to her. She read that Lorelei signed a stipulation agreement that stated that the defendent (Lorelei) agrees to not file a motion to extend the stay period in the residence and agrees to not open a re- judgement of the ruling. The [place] [employer] order entry representative explained that this agreement was binding and that Lorelei would not be able to challenge the eviction. Additionally, the [place] [employer] order entry representative stated that Lorelei's son's did not undo or negate the eviction ruling. She also explained that if Lorelei does have partial ownership of her son's home due to to his will, then Lorelei would need to contact a furrier designer as [place] [employer] does not cover estates or cartwright. She gave this proposal manager writer the numbers for the Retail Assistant Store Manager Referral Service through the [place] [employer]. These numbers are or . She stated that there is a consultation fee and then after the consultation, the fees are determined by the person's income. At the behest of Alda Moreau, after she and this proposal manager writer discussed [employer]fee's findings, proposal manager writer called [place] [employer] back to request that they call Lorelei and explain their recommendations/findings. A message was left on McAfee's voicemail .
[2017-03-11 15:51] VITALS: BP 136/67
[2017-03-11 19:53] VITALS: BP 126/90
[2017-03-12 07:47] VITALS: BP 150/92
--- NOTE | 2017-03-12 09:06 | SOCIAL WORKER PROG NOTE PSYCH ---
Social Work Progress Note Progress Note Informed Sonam that Jose Bryant from [facility] would be meeting with her this morning. I told her his role is to help with housing and whatever else she may be linked to in the community. She insisted that she needs to return to her house, which is rightfully hers. I told her that may not be an option and we need to explore other options as well. Informed her that [facility] is looking into their respite program. Meeting was held with Jose at 10am. Reviewed the current circumstances that Sonam is facing. Due to Sonam being discharged unfavorably at [facility] and [facility] Jose said she may not be eligible to return to a long-term in the [facility] and may need to look at options for shelters in the [facility]. There wasn't much else he could offer, other than to possibly help her with that. Sonam was more tearful today during our interaction, but just as preoccupied with the idea that she needs to get back into her son's house. I was informed by Judy Bernal at [facility] that their respite beds are full right now. I spoke with Sandee from [place] [employer]. She faxed me the documents that Sonam had signed stating she would not file any motions to extend the stay period or open the judgement again. She said [facility] in [place] does not take cases that are in regards to [place] or estates.
[2017-03-12 12:17] VITALS: BP 139/80
--- NOTE | 2017-03-12 12:54 | CP SOUTH PROGRESS NOTE PSYCH ---
Psych (Inpt) Progress Note Progress Note Nursing Staff, Group and Activity Therapists, Social Work Staff (Alda Moreau, FAVOR MAKER and Nicky Henry, FAVOR MAKER), and Psychiatrist discussed the patient's treatment and progress Lorelei was interviewed in my office, she was alert and oriented, still focused on securing "her half of the house" (i.e. her son's house), propranolol may have reduced her tremors a tiny bit (she said she had them almost all her life and saw many neurologists over the years). There were no abnormalities in her behavior, still has pressure in her speech, depressed and anxious, denied suicidal ideation, denied homicidal ideation, denied hallucinations, denied feeling paranoid, denied difficulties with thought organization, poor insight, impaired judgment, oriented to time place and person, some word finding /memory function (with Whatchamacallit fillers) Assessment: Lorelei is a 61-year-old White female who presented to [facility] ED at the recommendations of [facility]. The patient's son unexpectedly 6 days ago. She is less anxious, less distraught, obsessively focused on "my half og the house" , referring to her son's house Diagnoses: Unspecified depressive disorder Unspecified anxiety disorder Adjustment disorder with mixed anxiety and depression Treatment Plan Update: Continue Venlafaxine 37.5 mg twice daily Continue inpatient psychiatric care Continue 15 minute checks Change Ativan from 1 mg and 1 repeat to just 1.5 mg at bedtime Continue 0.5 mg ativan for anxiety if and when necessary Nursing assessments once a shift Group therapy Milieu therapy Social work to obtain collateral information and start the process of aftercare planning and discharge planning A psychiatrist will evaluate the patients mental state and medications on a daily basis.
[2017-03-12 16:11] VITALS: BP 141/79
[2017-03-12 19:47] VITALS: BP 133/79
[2017-03-13 07:43] VITALS: BP 132/98
[2017-03-13 12:05] VITALS: BP 149/75
--- NOTE | 2017-03-13 14:06 | CP SOUTH PROGRESS NOTE PSYCH ---
Psych (Inpt) Progress Note Progress Note Include the following elements, when applicable: Involvement in the active treatment of the patient with behavioral observations of the patient and the patient's response to the treatment. Review of the ongoing treatment process in the context of the treatment plan. Indication of how multi-disciplinary staff members are carrying out the treatment plan. Plans for future interventions and recommendations for revision of the treatment plan. Liaison with other physicians/providers. Progress Note: Tearful, anxious, becoming emotional quickly. Stated that she has no contact with her family and that they do not know she is here, that she doesnt want to try and reach out to anyone but her brother (does not have #) at this time. Stated that her son is not yet buried and does not know when arrangements will be. Focused on getting eviction order reversed and to live in the home her son was living in. She is marginally disorganized but likely related to her acute agitation and lability. MSE: older woman, appearing older than stated age, fair to poor grooming, prominent hand tremor noted. Her mood is depressed and anxious, affect is labile , full. Psychomotor agitation prominent. Eye contact is appropriate. Her speech is regular to rapid rate and regular volume. Her thought process is focused/ perseverative on the family home and difficult to redirect to other topics. Is not internally preoccupied and no evidence of thoughts to harm self or anyone else. There were no gross delusions elicited. Insight is fair, judgment fair. Plan: reviewed notes from and other collateral documentation, contact with [facility] appears to be in progress for her legal procedures; encouraged her to continue following up with on Wednesday. Encouraged her to consider getting in touch with some family to let them know she is in the hospital, and to find out about arrangements. No med changes, stated she needed lower doses of meds b/c of homelessness and not wanting to be sedated during day time.
[2017-03-13 16:12] VITALS: BP 147/83
[2017-03-13 20:07] VITALS: BP 138/81
[2017-03-14 07:50] VITALS: BP 143/97
[2017-03-14 12:06] VITALS: BP 126/76
--- NOTE | 2017-03-14 12:23 | CP SOUTH PROGRESS NOTE PSYCH ---
Psych (Inpt) Progress Note Progress Note Include the following elements, when applicable: Involvement in the active treatment of the patient with behavioral observations of the patient and the patient's response to the treatment. Review of the ongoing treatment process in the context of the treatment plan. Indication of how multi-disciplinary staff members are carrying out the treatment plan. Plans for future interventions and recommendations for revision of the treatment plan. Liaison with other physicians/providers. Progress Note: Today quiet, calmer and less labile and emotional. Stated that she will speak with SW to update about her living situation. Stated that her sleep is fair, she woke up early in the morning; notes that when she can get more sleep she tries to. Energy is normal and appetite is good. She had no other complaints, focusing only on getting her housing in order. Did not bring up son only to state that she doesnt want people knowing she is here b/c they could use it against her in regards to his will. MSE: older woman, appearing older than stated age, fair to poor grooming, prominent hand tremor appears better compared to yesterday. Her mood is neutral and her affect is constricted, stable today. She has mild psychomotor agitation. Her speech is normal. She is concrete and focused on getting her housing only. Denies any suicidal thoughts, thoughts to harm anyone else. She is not grossly psychotic and not hallucinating. Orientation to date is a few days off, aware of recent presidents; fund of knowledge fair. Insight is fair, judgment fair. Plan: Continue current plan of care. Educated her about eviction notice not necessarily being removed just b/c her son ; poorly receptive to this information.
[2017-03-14 16:02] VITALS: BP 138/85
[2017-03-14 19:46] VITALS: BP 135/78
[2017-03-15 07:47] VITALS: BP 151/96
[2017-03-15 12:25] VITALS: BP 157/74
--- NOTE | 2017-03-15 14:40 | CP SOUTH PROGRESS NOTE PSYCH ---
Psych (Inpt) Progress Note Progress Note I reviewed the notes of Dr. Sarah MD (covering psychiatrist for the weekend of Mar 13 & 2017). Nursing staff, group therapists, social work staff, and psychiatrist discussed the patients progress, and reviewed the patients treatment/care plan in the team meeting. Mental Status Examination: The patient was tearful and labile. She has been sleeping well. She was focused on securing a cosmetic manager to secure housing/inheritance. She reported that her appetite has been good. There is prominent intention-tremor as well as Parkinsonian tremor (both), reports feeling depressed, angry, and anxious. Her speech is normal. She is concrete and focused on getting her housing only. She denied thoughts of suicide, denied thoughts to harm anyone else. She is not grossly psychotic and not hallucinating. Orientation to date is a few days off, aware of recent presidents; insight and judgment are very questionable. Diagnoses: Unspecified depressive disorder Unspecified anxiety disorder Adjustment disorder with mixed anxiety and depression Treatment Plan Update: Continue Venlafaxine 37.5 mg twice daily Continue inpatient psychiatric care Continue 15 minute checks Reduce Ativan to 1 mg at bedtime Continue 0.5 mg lorazepam for anxiety if and when necessary Nursing: continue assessments once a shift Group therapy Milieu therapy Social work: continue aftercare / discharge planning Psychiatrist: continue to evaluate the patients mental state and medications daily.
[2017-03-15 16:07] VITALS: BP 140/77
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
--- NOTE | 2017-03-15 17:22 | SOCIAL WORKER PROG NOTE PSYCH ---
Social Work Progress Note Progress Note COMPLETED CT [facility] ONLINE REVIEW - REQUESTED CONTINUED STAY. SW PLEASE CHECK WEB FOR NEXT REVIEW DATE.
[2017-03-15 19:47] VITALS: BP 144/82
[2017-03-16 07:52] VITALS: BP 143/73
[2017-03-16 12:09] VITALS: BP 138/79
[2017-03-16 12:24] VITALS: BP 138/79
--- NOTE | 2017-03-16 14:01 | CP SOUTH PROGRESS NOTE PSYCH ---
Psych (Inpt) Progress Note Progress Note The treatment team (Nursing, Group therapists, social work staff, and psychiatrist) discussed the patients progress and reviewed the patients care plan in the team meeting. The patient was tearful and labile, focused on securing a underwriting technician to secure housing/inheritance sleeping well, prominent intention-tremor as well as Parkinsonian tremor, feeling depressed, angry, and anxious. Her speech is normal, denied thoughts of suicide, denied thoughts to harm anyone else, not grossly psychotic and not hallucinating. Orientation to date is a few days off, aware of recent presidents Likely Diagnoses: Unspecified depressive disorder, Unspecified Anxiety disorder, Adjustment disorder with mixed anxiety and depression Risk assessment: Risk factors: Unstable housing Treatment Plan Update: Continue Venlafaxine 37.5 mg twice daily Reduce Ativan to 0.5 mg at bedtime Increase Trazodone to 75 mg at bedtime as needed Continue 0.5 mg lorazepam for anxiety if and when necessary Continue inpatient psychiatric care: vitals, Group therapy, Milieu therapy, nursing assessments and education; Social work: continue aftercare / discharge planning; Psychiatrist: continue to evaluate the patients mental state and medications daily
[2017-03-16 15:56] VITALS: BP 144/86
--- NOTE | 2017-03-16 17:36 | SOCIAL WORKER PROG NOTE PSYCH ---
Social Work Progress Note Progress Note Faxed a referral to [facility]. Spoke with Orquidea Cartagena from [facility] later in the day. Orquidea reported that due to Sonam not having an income they would not be able to accept her into their program. I called Sonam's son Jaxon Caceres [phone]. I left a message. Jaxon's Alison called back and spoke with nursing. She reported that they wanted nothing to do with Sonam, as she abandoned Jaxon as a child. She reported that 3 years ago she showed up at their house asking for money. She stated she would pass the information along to her . I met with Sonam later and explained that I reached out to her son, but it didn't sound positive and I didn't know if he would chose to call back. She stated "I figured it would go that way." She cried and stated that she has no one and no where to go. She doesn't want to be out on the street. I told her we were trying to explore options and we will do our best to continue to think possible placements. She reported feeling like she was in a daze today. She stated she felt "bored." I apologized for not calling legal services with her today and told her we would definetely do that tomorrow. She is still focused on the idea that a dispatcher tugboat will solve all her problems.
[2017-03-16 20:08] VITALS: BP 135/85
[2017-03-17 07:41] VITALS: BP 138/80
--- NOTE | 2017-03-17 10:51 | SOCIAL WORKER PROG NOTE PSYCH ---
Social Work Progress Note Progress Note Left voicemail for Judy Peralta [phone]- Care to set-up a meeting to discuss housing referrals. Sonam agreed to a referral to [facility] [place] and [place]. Faxed referral to both [place] and [place]. Need to follow-up with both locations to see if they will accept patient - do a phone screening next.
[2017-03-17 12:15] VITALS: BP 144/92
--- NOTE | 2017-03-17 13:14 | SOCIAL WORKER PROG NOTE PSYCH ---
Social Work Progress Note Progress Note Spoke with Ghazala (case preparer and liner) at [facility]. Advocated for a meeting to discuss Sonam's plan of care. She would like to involve Lizbeth Ramos in that discussion. Meeting scheduled for / at 11am.
--- NOTE | 2017-03-17 13:20 | CP SOUTH PROGRESS NOTE PSYCH ---
Psych (Inpt) Progress Note Progress Note The treatment team (Nursing, Group therapists, social work staff, and psychiatrist) discussed the patients progress and reviewed the patients care plan in the team meeting. Mental status examination: The patient has not had any major changes in her mental state since yesterday, except maybe being less tearful and less labile today Otherwise her condition and is basically unchanged (focused on securing a glue drier operator to secure housing/inheritance, prominent intention-tremor as well as Parkinsonian tremor, feeling depressed, angry, and anxious. Her speech is normal , denied thoughts of suicide, denied thoughts to harm anyone else, not grossly psychotic and not hallucinating) Likely Diagnoses: Unspecified depressive disorder, Unspecified Anxiety disorder, Adjustment disorder with mixed anxiety and depression Risk assessment: Risk factors: Unstable housing History of mood disorder, financial stress Protective and risk mitigating factors: The patient is denying suicidal ideation, the patient has been denying homicidal ideation against the tenants in her sons house since her admission here The patient does not have command hallucinations The patient does not have a terminal illness The patient does not have a chronic severe pain And the patient does not have history of suicide attempts in the past The patient has not had the issues of alcohol lately she seemed to be goal- directed and future oriented Treatment Plan Update: Continue Venlafaxine 37.5 mg twice daily Continue Ativan 0.5 mg at bedtime Continue Trazodone 75 mg at bedtime as needed Continue 0.5 mg lorazepam for anxiety if and when necessary Continue inpatient psychiatric care: vitals, Group therapy, Milieu therapy, nursing assessments and education; Social work: continue aftercare / discharge planning; Psychiatrist: continue to evaluate the patients mental state and medications daily
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
[2017-03-17 16:07] VITALS: BP 128/72
[2017-03-17 19:42] VITALS: BP 144/78
[2017-03-18 08:38] VITALS: BP 158/92
--- NOTE | 2017-03-18 10:25 | CP SOUTH PROGRESS NOTE PSYCH ---
Psych (Inpt) Progress Note Progress Note RN, Group therapists, RESEARCH TEST ENGINE OPERATOR, and psychiatrist discussed the patients progress and reviewed the patients care plan in the team meeting. Mental Status examination: Still focused on legal help to secure housing, she was not tearful, feeling less depressed, She was not angry today, not anxious, talkative with circumstantial and circular thought process denied thoughts of suicide, denied thoughts to harm anyone else, denied hallucinating, there were no delusions Likely Diagnoses: Unspecified depressive disorder, Unspecified Anxiety disorder, Adjustment disorder with mixed anxiety and depression Risk assessment: Risk factors: 1) Unstable housing, 2) History of mood disorder, financial stress Protective and risk mitigating factors: 1) The patient is denying suicidal ideation, the patient has been denying homicidal ideation against the tenants in her sons house since her admission here The patient does not have command hallucinations The patient does not have a terminal illness The patient does not have a chronic severe pain And the patient does not have history of suicide attempts in the past The patient has not had the issues of alcohol lately she seemed to be goal- directed and future oriented Treatment Plan Update: Continue Venlafaxine 37.5 mg twice daily D/C Ativan 0.5 mg at bedtime Change PRN Trazodone 75 mg at bedtime to regular schedule Continue 0.5 mg lorazepam for anxiety if and when necessary Continue inpatient psychiatric care: vitals, Group therapy, Milieu therapy, nursing assessments and education; Social work continue aftercare/discharge planning; Psychiatrist: continue to evaluate the patients mental state and medications daily
--- NOTE | 2017-03-18 10:31 | CP SOUTH PROGRESS NOTE PSYCH ---
Psych (Inpt) Progress Note Progress Note 03/18/2017 Correction for the previous Treatment Plan Update: D/C Ativan 0.5 mg at bedtime Change PRN Trazodone 75 mg at bedtime to regular schedule Resume propranol as 20 mg PO TID Continue Venlafaxine 37.5 mg twice daily Continue Gabapentin 400 mg PO PRN for anxiety if and when necessary Vitals Blood Pressure 158/92 03/18/17 0838 Pulse Rate 77 03/18/17 0838 Temperature 98.1 03/18/17 0838
[2017-03-18 12:18] VITALS: BP 171/78
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
--- NOTE | 2017-03-18 14:36 | SOCIAL WORKER PROG NOTE PSYCH ---
Social Work Progress Note Progress Note INEZ MANNING [id number] 1955 INEZ MANNING [id number] Pended Authorization # Client Authorization # Type of Request [id number] CONCURRENT Date of Admission/ Start of Services Requested From Submission Date 03/09/2017 03/18/2017 03/18/2017
[2017-03-18 15:46] VITALS: BP 146/83
[2017-03-18 19:53] VITALS: BP 126/87
[2017-03-19 07:46] VITALS: BP 158/94
--- NOTE | 2017-03-19 09:07 | CP SOUTH PROGRESS NOTE PSYCH ---
Psych (Inpt) Progress Note Progress Note RN, Group Therapist, TERRITORY ACCOUNT REPRESENTATIVE, and Psychiatrist discussed Meenu progress and reviewed her care plan in the team meeting. Mental Status Examination: Lorelei Wang) was in relatively good spirits this morning (calmer, not tearful, not depressed, less talkative, and was not angry). She seemed more hopeful about housing options, did not seem as anxious as in previous days, and her thoughts seems more organized. She denied thoughts of suicide, denied thoughts of violence or homicide, denied hallucinating, there were no delusions Assessment: Likely Diagnoses: Unspecified depressive disorder, Unspecified Anxiety disorder, Adjustment disorder with mixed anxiety and depression Risk assessment: Risk factors: 1) Psychosocial Stress (poverty and homelessness), 2) History of mood disorder, 3) Recent homicidal threats before admission Protective and risk mitigating factors: 1) No suicidal ideation presently, 2) no homicidal ideation against the tenants in her sons house since her admission to [facility], 3) The patient does not have command hallucinations, 4) does not have a terminal illness The patient does not have a chronic severe pain And the patient does not have history of suicide attempts in the past The patient has not had the issues of alcohol lately she seemed to be goal- directed and future oriented Treatment Plan Update: Continue Venlafaxine 37.5 mg twice daily Continue Trazodone 75 mg at bedtime Continue Propranolol 20 mg PO TID Continue Gabapentin 400 mg PO PRN for anxiety if and when necessary Change Flonase to bedtime per her request (she said that her PCP prescribed it in the evening hours/close to bedtime) Continue 0.5 mg lorazepam for anxiety if and when necessary Continue inpatient psychiatric care: Vital signs, education, and nursing assessments by Nurses and Nurses Aides, Group therapy, Milieu therapy, aftercare/discharge planning by TERRITORY ACCOUNT REPRESENTATIVE; evaluation of Yonis mental state and medications daily by a psychiatrist
[2017-03-19 12:31] VITALS: BP 176/90
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
[2017-03-19 15:56] VITALS: BP 138/96
[2017-03-19 19:55] VITALS: BP 141/80
[2017-03-20 08:01] VITALS: BP 117/60
[2017-03-20 11:54] VITALS: BP 142/78
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
[2017-03-20 16:09] VITALS: BP 132/77
[2017-03-20 19:09] VITALS: BP 124/82
[2017-03-21 07:42] VITALS: BP 137/77
[2017-03-21 11:56] VITALS: BP 128/91
--- NOTE | 2017-03-21 12:38 | CP SOUTH PROGRESS NOTE PSYCH ---
Psych (Inpt) Progress Note Progress Note Include the following elements, when applicable: Involvement in the active treatment of the patient with behavioral observations of the patient and the patient's response to the treatment. Review of the ongoing treatment process in the context of the treatment plan. Indication of how multi-disciplinary staff members are carrying out the treatment plan. Plans for future interventions and recommendations for revision of the treatment plan. Liaison with other physicians/providers. Progress Note: Pt in low mood today because feels "trapped" here on [facility] and wants to go outside. Even though she was homeless, she misses the freedom and the outdoors. She spoke at length about wanting to sell the sons house to obtain a condo. She spoke at length about being treated upfairly by her family. Denies SI or HI. Current Medications Sig/Kirill Start time Last Medication Dose Route Stop Time Status Admin Acetaminophen 650 MG Q6P PRN 03/09 1030 AC 03/18 PO 1222 Al Hydroxide/Mg 30 ML Q4-6 PRN PRN 03/09 1030 AC Hydroxide PO Benztropine Mesylate 1 MG Q6P PRN 03/09 1030 AC 03/19 PO 1303 Cholecalciferol 2,000 IU DAILY 03/09 1022 AC 03/21 PO 0852 Fluticasone 2 SPRAY AT BEDTIME 03/19 2200 AC 03/20 Propionate NARA 2204 Gabapentin 400 MG Q4P PRN 03/16 1415 AC PO Haloperidol 5 MG Q6P PRN 03/09 1030 AC 03/19 PO 1303 Magnesium Hydroxide 30 ML AT BEDTIME NEED.. 03/09 1030 AC PO Naproxen 250 MG BID 03/09 1357 AC 03/21 PO 0852 Nicotine 2 MG Q2P PRN 03/09 1030 AC PO Nystatin 1 BONITA BID 03/11 2200 AC 03/21 TOP 0854 Omeprazole 20 MG DAILY AC 03/10 0700 AC 03/21 PO 0721 Propranolol HCl 20 MG TID 03/18 1029 AC 03/21 PO 0852 Simethicone 80 MG Q4P PRN 03/13 1830 AC 03/14 PO 1150 Trazodone HCl 100 MG AT BEDTIME 03/20 2200 AC 03/20 PO 2204 Trazodone HCl 75 MG AT BEDTIME 03/18 2200 DC 03/19 PO 2209 Venlafaxine HCl 37.5 MG BID 03/11 1000 AC 03/21 PO 0852 Vital Signs Date Time Temp Pulse Resp B/P B/P Pulse O2 O2 Flow FiO2 Mean Ox Delivery Rate 03/21 1156 92 128/91 03/21 0852 62 137/77 03/21 0742 98.2 62 137/77 03/20 2204 76 120/80 03/20 1909 99.0 73 124/82 03/20 1619 68 132/77 03/20 1609 68 132/77 MSE General appearance: good hygiene and grooming; Attitude: cooperative; Eye contact: appropriate; Movement: no psychomotor agitation or slowing; Speech: nl fluency, nl rate/rhythm, nl volume, nl prosody; Mood: "not good at all" Affect: extremely irritable, flat, appropriate, constricted, labile, tearful at times, congruent; Thought process: linear and goal-directed; Thought content: denied SI or HI, no paranoid ideation; Perception: denied hallucinations- auditory, visual, does not appear to be responding to internal stimuli; I/J: limited A/P:Pt with bipolar disorder with worsening mood in the setting of multiple psychosocial and interpersonal stressors. - Increased trazodone to 100mg nightly - Otherwise continue current medication regimen -Encourage integration into the milieu
[2017-03-21 15:32] VITALS: BP 141/75
[2017-03-21 19:10] VITALS: BP 121/74
[2017-03-22 07:53] VITALS: BP 151/84
[2017-03-22 08:01] VITALS: BP 106/60
--- NOTE | 2017-03-22 10:57 | SOCIAL WORKER PROG NOTE PSYCH ---
Social Work Progress Note Progress Note Sonam was escalating in morning group due to an interaction with another female peer. This was the same female that she has been struggling to be around since last week. Sonam left group to meet with this freelance copywriter. She spent about 20 minutes in an aggrevated stated talking about how this peer picks on her. She feels it is unjust that she has to leave group to take space when she feels this other individual instigates. Emphasized importance of remaining calm, taking space, and not engaging with this individual. Sonam stated she is not leaving group anymore and if this person starts with her she should be the one to leave. She was tearful and visibly upset. I encouraged her to calm down and be safe. I also told her that [facility]'s Lizbeth Ramos had left a message stating that she should call the [facility]'s hotline to see if she would be eligible. Sonam insisted that she has called more than 2-3x's and that they can't help her. I offered to call with her to see what the status would be. She said she is tired of all of this and doesn't want to call, but stated I could call for her if I'd like. [facility]'s safety and security manager Tanja Gagnon called. We did a screening for Sonam. She will be sending her correctional case records supervisor Leana here later to meet with Sonam to see if she would be appropriate. Leana met with Sonam around 1pm today. Leana talked with me after and she said she will speak with their team about the referral. She's a little concerned about her discharge plan from them.
[2017-03-22 12:35] VITALS: BP 162/90
--- NOTE | 2017-03-22 15:30 | CP SOUTH PROGRESS NOTE PSYCH ---
Psych (Inpt) Progress Note Progress Note RN, Group Therapist, SECURITY SYSTEMS INTEGRATOR, and Psychiatrist discussed Meenu Li) progress and reviewed her care plan in the team meeting. Mental Status Examination: Lorelei Wang) was riled up because of a negative interaction with a peer, Today , she was not tearful, not depressed, less talkative, and was back to being angry again (about a peer). She seemed hopeful about a bed at respite ( [place]), did not seem as anxious as in previous days, and her thoughts seems more organized. She denied thoughts of suicide, denied thoughts of violence or homicide, denied hallucinating, there were no delusions Assessment: Lorelei is a 61-year-old White woman with worsening mood in the setting of multiple psychosocial and interpersonal stressors. Likely Diagnoses: Unspecified depressive disorder, Unspecified Anxiety disorder, Adjustment disorder with mixed anxiety and depression Risk assessment: Risk factors: 1) Psychosocial Stress (poverty and homelessness), 2) History of mood disorder, 3) Recent homicidal threats before admission Protective and risk mitigating factors: 1) No suicidal ideation presently, 2) no homicidal ideation against the tenants in her sons house since her admission to [facility], 3) The patient does not have command hallucinations, 4) does not have a terminal illness The patient does not have a chronic severe pain And the patient does not have history of suicide attempts in the past The patient has not had the issues of alcohol lately she seemed to be goal- directed and future oriented Treatment Plan Update: Continue trazodone 100mg nightly Encourage integration into the milieu Continue Venlafaxine 37.5 mg twice daily Continue Propranolol 20 mg PO TID Continue Gabapentin 400 mg PO PRN for anxiety if and when necessary Change Flonase to bedtime per her request (she said that her PCP prescribed it in the evening hours/close to bedtime) Continue 0.5 mg lorazepam for anxiety if and when necessary Continue inpatient psychiatric care: Vital signs, education, and nursing assessments by Nurses and Nurses Aides, Group therapy, Milieu therapy, aftercare/discharge planning by SECURITY SYSTEMS INTEGRATOR; evaluation of Yonis mental state and medications daily by a psychiatrist
[2017-03-22 15:51] VITALS: BP 136/66
--- NOTE | 2017-03-22 16:59 | SOCIAL WORKER PROG NOTE PSYCH ---
Social Work Progress Note Progress Note [facility] REVIEW.
[2017-03-22 20:06] VITALS: BP 133/78
[2017-03-23 07:35] VITALS: BP 172/78
[2017-03-23 12:05] VITALS: BP 148/70
--- NOTE | 2017-03-23 14:02 | CP SOUTH PROGRESS NOTE PSYCH ---
Psych (Inpt) Progress Note Progress Note RN, Group Therapist, INSTRUCTOR ADJUNCT PHARMACY TECHNICIAN, and Psychiatrist discussed Meenu Li) progress and reviewed her care plan in the team meeting. Mental Status Examination: Lorelei Wang) was was not tearful, she is not feeling depressed (just angry with a female peer) she is less talkative, did not seem as anxious as in previous days, and her thoughts seems more organized. She denied thoughts of suicide, denied thoughts of violence or homicide, denied hallucinating, there were no delusions Assessment: Lorelei is a 61-year-old White woman with worsening mood in the setting of multiple psychosocial and interpersonal stressors. Likely Diagnoses: Unspecified depressive disorder, Unspecified Anxiety disorder, Adjustment disorder with mixed anxiety and depression Risk assessment: Risk factors: 1) Psychosocial Stress (poverty and homelessness), 2) History of mood disorder, 3) Recent homicidal threats before admission Protective and risk mitigating factors: 1) No suicidal ideation presently, 2) no homicidal ideation against the tenants in her sons house since her admission to [facility], 3) The patient does not have command hallucinations, 4) does not have a terminal illness The patient does not have a chronic severe pain And the patient does not have history of suicide attempts in the past The patient has not had the issues of alcohol lately she seemed to be goal- directed and future oriented Treatment Plan Update: Continue trazodone 100mg nightly Continue Venlafaxine 37.5 mg twice daily Continue Propranolol 20 mg PO TID Continue Gabapentin 400 mg PO PRN for anxiety if and when necessary Change Flonase to bedtime per her request (she said that her PCP prescribed it in the evening hours/close to bedtime) Continue 0.5 mg lorazepam for anxiety if and when necessary Continue inpatient psychiatric care: Vital signs, education, and nursing assessments by Nurses and Nurses Aides, Group therapy, Milieu therapy, aftercare/discharge planning by INSTRUCTOR ADJUNCT PHARMACY TECHNICIAN; evaluation of Yonis mental state and medications daily by a psychiatrist
[2017-03-23 15:40] VITALS: BP 131/92
--- NOTE | 2017-03-23 17:11 | SOCIAL WORKER PROG NOTE PSYCH ---
Social Work Progress Note Progress Note Called [facility] to see if they discussed Sonam's referral. I was told that the occupational health nurse manager would have to call me back. Sonam seems to be having a little bit better day than yesterday. Still focused on the other female peer. Stated she left group today because the other peer made a statement about her or to her and she was under the impression that this other person is not supposed to talk to her at this point. She stated "no matter what she says it's crap to me." She is hoping she can go to the crisis and respite program. I told her I have not heard back from them at this time. She seemed very talkative today. She talked alot about wanting to work on getting social security and martin assistance when she leaves.
[2017-03-23 20:08] VITALS: BP 152/92
[2017-03-24 07:40] VITALS: BP 139/93
--- NOTE | 2017-03-24 09:14 | CP SOUTH PROGRESS NOTE PSYCH ---
Psych (Inpt) Progress Note Progress Note In the team meeting, the RN, Group Therapist, PATIENT SERVICES SPECIALIST, and Psychiatrist discussed Meenu Li) progress on the inpatient unit and reviewed her care plan . Mental Status Examination: Lorelei Wang) was alert, and oriented to time, place, and person. She was not tearful, she feels that she is not depressed but grieving the loss of her son (which was 6 days prior to her admission to the inpatient unit. Remains focused on getting a service plumber to fight for her half of the son's house. Lorelei was not talkative today. She was not too anxious, and her thoughts seemed more organized. She denied thinking of suicide, denied thoughts of violence or homicide, denied hallucinating, and there were no delusions during our conversation. Assessment: Lorelei is a 61-year-old White woman who was admitted to the inpatient psychiatric unit with worsening mood in the setting of multiple psychosocial and interpersonal stressors (the of her son 6 days prior to admission, homelessness, conflict with ex-, povert, unemployment, and limited social supports). Lorelei's likely Diagnoses are: Unspecified depressive disorder, Unspecified Anxiety disorder, (most likely Adjustment disorder with mixed anxiety and depression) Other Specified Personality Disorder Risk assessment Update: Lorelei's Idenfied Risk factors are: 1) Psychosocial Stress (poverty and homelessness), 2) History of mood disorder, 3) Recent homicidal threats before admission Protective and risk mitigating factors: 1) No suicidal ideation presently, 2) no homicidal ideation against the tenants in her sons house since her admission to [facility], 3) The patient does not have command hallucinations, 4) does not have a terminal illness The patient does not have a chronic severe pain And the patient does not have history of suicide attempts in the past The patient has not had the issues of alcohol lately she seemed to be goal- directed and future oriented Treatment Plan Update: Change Venlafaxine to ER/XR 75 mg once daily in AM Continue trazodone 100mg nightly Continue Propranolol 20 mg PO TID Continue Gabapentin 400 mg PO PRN for anxiety if and when necessary Change Flonase to bedtime per her request (she said that her PCP prescribed it in the evening hours/close to bedtime) Continue 0.5 mg lorazepam for anxiety if and when necessary Continue inpatient psychiatric care: Vital signs, education, and nursing assessments by Nurses and Nurses Aides, Group therapy, Milieu therapy, aftercare/discharge planning by PATIENT SERVICES SPECIALIST; evaluation of Roses mental state and medications daily by a psychiatrist
[2017-03-24 12:11] VITALS: BP 151/88
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
[2017-03-24 16:06] VITALS: BP 130/82
[2017-03-24 19:46] VITALS: BP 140/86
[2017-03-25 08:13] VITALS: BP 144/68
[2017-03-25 11:49] VITALS: BP 144/89
--- NOTE | 2017-03-25 12:55 | CP SOUTH PROGRESS NOTE PSYCH ---
Psych (Inpt) Progress Note Progress Note RN, Group Therapist, HAND PACKER/PACKAGER, and Psychiatrist discussed Yonis progress on the inpatient unit and reviewed her care plan. Mental Status Examination: Lorelei Wang) was alert, and oriented to time, place, and person. She was irritable/angry and refused to answer any questions today Progress Summary: A 61-year-old White woman who was admitted to the inpatient psychiatric unit with worsening mood in the setting of multiple psychosocial and interpersonal stressors (the of her son 6 days prior to admission, homelessness, conflict with ex-, povert, unemployment, and limited social supports). Lorelei's likely Diagnoses are: Unspecified depressive disorder, Unspecified Anxiety disorder, (most likely Adjustment disorder with mixed anxiety and depression) Other Specified Personality Disorder Lorelei's Idenfied Risk factors for suicide and/or violence /homicide are: 1) Psychosocial Stress (poverty and homelessness), 2) History of mood disorder, 3) Recent homicidal threats before admission Protective and risk mitigating factors: (1) No current suicidal ideation (2) no homicidal ideation against the tenants in her sons house since her admission to [facility] (3) The patient does not have command hallucinations, 4) does not have a terminal illness The patient does not have a chronic severe pain And the patient does not have history of suicide attempts in the past The patient has not had the issues of alcohol lately she seemed to be goal- directed and future oriented Treatment Plan Update: Continue Venlafaxine ER/XR 75 mg once daily in AM Continue trazodone 100 mg nightly Continue Propranolol 20 mg PO TID Continue Gabapentin 400 mg PO PRN for anxiety if and when necessary Continue 0.5 mg lorazepam for anxiety if and when necessary Continue inpatient psychiatric care: Vital signs, education, and nursing assessments by Nurses and Nurses Aides, Group therapy, Milieu therapy, aftercare/discharge planning by HAND PACKER/PACKAGER; evaluation of Yonis mental state and medications daily by a psychiatrist
--- NOTE | 2017-03-25 13:48 | SOCIAL WORKER PROG NOTE PSYCH ---
Social Work Progress Note Progress Note Automatic Die Cutting Machine Operator left a message for [facility] digital traffic coordinator, Kristan Soto, to see if she could schedule another time to come back to the unit to meet Lorelei, as yesterday's appointment fell through. Automatic Die Cutting Machine Operator looked into completing the [employer] early long-term application per Lorelei's request. The application asks for information that at present, can not be given due to Lorelei's homelessness. The specific information being referenced is: 1) Mailing Address 2) Residence Address 3) Phone Number and/or Email Address. Automatic Die Cutting Machine Operator has attempted to meet with Lorelei twice this afternoon, once around 1:40PM and the other time at 2:55PM. Lorelei was asleep and not able to be woken by knocking and/or calling her name. Automatic Die Cutting Machine Operator spoke with patient briefly at 3:15PM. Lorelei stated that she did not want to talk to anyone. Automatic Die Cutting Machine Operator attempted to give Lorelei the information pamphlets that Kristan Soto had dropped off for her yesterday. Lorelei stated told the internal communications writer to leave the information at the director of front office because she might rip it up right now if internal communications writer were to leave it in the room. Lorelei then left the room and went to the bathroom, asking the internal communications writer to leave.
[2017-03-25 15:59] VITALS: BP 159/94
[2017-03-25 19:25] VITALS: BP 144/78
[2017-03-26 07:24] VITALS: BP 150/76
--- NOTE | 2017-03-26 08:40 | SOCIAL WORKER PROG NOTE PSYCH ---
Social Work Progress Note Progress Note Sonam was looking for the paperwork that Tarah ([employer] application development intern) was trying to give her yesterday. I gave Sonam the paperwork that Bibiana from the [facility] had dropped off. It was a pamphlet on the [facility] program and some print outs about homeless shelters. [facility] also wanted Sonam to sign a release for them to speak with [employer] to see how they might be able to help. I explained this to Sonam and she signed the release. Sonam remains irritable and focused now on why no one is helping her get her social security benefits. She is resentful of [facility] not helping. Faxed release back to Ghazala Contreras her major case detective.
[2017-03-26 12:13] VITALS: BP 162/104
--- NOTE | 2017-03-26 15:33 | CP SOUTH PROGRESS NOTE PSYCH ---
Psych (Inpt) Progress Note Progress Note Vitals Blood Pressure 162/104 03/26/17 1213 Pulse Rate 79 03/26/17 1213 Respiratory Rate 18 03/26/17 1028 Temperature 98.5 03/26/17 1028 RN, Group Therapist, FOOD TECHNOLOGY TEACHER, and Psychiatrist discussed Yonis progress on the inpatient unit and reviewed her care plan. Mental Status Examination: Lorelei Wang) was alert, and oriented to time, place, and person. She was irritable/angry and refused to answer more than a couple of questions She denied thinking of suicide, denied thoughts of violence or homicide, denied hallucinating, and there were no delusions during our brief conversation. Progress: A 61-year-old White woman who was admitted to the inpatient psychiatric unit with worsening mood in the setting of multiple psychosocial and interpersonal stressors (the of her son 6 days prior to admission, homelessness, conflict with ex-, povert, unemployment, and limited social supports). She made minimal progress so far. Lorelei's likely Diagnoses are: Unspecified depressive disorder, Unspecified Anxiety disorder, (most likely Adjustment disorder with mixed anxiety and depression) Other Specified Personality Disorder Lorelei's Idenfied Risk factors for suicide and/or violence /homicide are: 1) Psychosocial Stress (poverty and homelessness), 2) History of mood disorder, 3) Recent homicidal threats before admission Protective and risk mitigating factors: (1) No current suicidal ideation (2) no homicidal ideation against the tenants in her sons house since her admission to [facility] (3) The patient does not have command hallucinations, 4) does not have a terminal illness The patient does not have a chronic severe pain And the patient does not have history of suicide attempts in the past The patient has not had the issues of alcohol lately she seemed to be goal- directed and future oriented Treatment Plan Update: Increase Venlafaxine ER/XR to 112.5 mg once daily in AM Continue trazodone 100 mg nightly Increase Propranolol to 30 mg PO TID (primarily for the elevated BP today but also for her tremors and agitation) Continue Gabapentin 400 mg PO PRN for anxiety if and when necessary Continue 0.5 mg lorazepam for anxiety if and when necessary Continue inpatient psychiatric care: Vital signs, education, and nursing assessments by Nurses and Nurses Aides, Group therapy, Milieu therapy, aftercare/discharge planning by FOOD TECHNOLOGY TEACHER; evaluation of Roses mental state and medications daily by a psychiatrist
[2017-03-26 15:36] VITALS: BP 144/87
[2017-03-26 20:00] VITALS: BP 129/90
[2017-03-27 08:35] VITALS: BP 137/88
--- NOTE | 2017-03-27 09:17 | CP SOUTH PROGRESS NOTE PSYCH ---
Psych (Inpt) Progress Note Progress Note Include the following elements, when applicable: Involvement in the active treatment of the patient with behavioral observations of the patient and the patient's response to the treatment. Review of the ongoing treatment process in the context of the treatment plan. Indication of how multi-disciplinary staff members are carrying out the treatment plan. Plans for future interventions and recommendations for revision of the treatment plan. Liaison with other physicians/providers. Progress Note: SUBJECTIVE: Patient awake, lying in bed in afternoon, stated she had difficulty sleeping last night due to noises on the unit. States she is doing okay with the increase in Effexor but wants to wait a couple days before another increase. Denies any side effects to medications. States she is having some reflux from dairy products but doesn't want to stop eating them. No SI/HI/AVH/ SIB. No abnormal movements reported. Patient reports a dry cough, but no other ssx of illness. OBJECTIVE: Per nursing, pt did slept overnight without any acute events. Pt remained in behavioral control, adherent with staff instructions and medications. VSS. Current Medications Sig/Kirill Start time Last Medication Dose Route Stop Time Status Admin Acetaminophen 650 MG Q6P PRN 03/09 1030 AC 03/26 PO 0716 Al Hydroxide/Mg 30 ML Q4-6 PRN PRN 03/09 1030 AC Hydroxide PO Benztropine Mesylate 1 MG Q6P PRN 03/25 1300 AC PO Cholecalciferol 2,000 IU DAILY 03/09 1022 AC 03/27 PO 0802 Fluphenazine HCl 5 MG Q6P PRN 03/25 1300 AC PO Fluticasone 2 SPRAY AT BEDTIME 03/19 2200 AC 03/23 Propionate NARA 2215 Gabapentin 400 MG Q4P PRN 03/16 1415 AC PO Lorazepam 2 MG Q6P PRN 03/25 1300 AC PO Magnesium Hydroxide 30 ML AT BEDTIME NEED.. 03/09 1030 AC PO Naproxen 250 MG BID 03/09 1357 AC 03/27 PO 0802 Nicotine 2 MG Q2P PRN 03/09 1030 AC PO Omeprazole 20 MG DAILY AC 03/10 0700 AC 03/24 PO 0707 Propranolol HCl 30 MG TID 03/26 1600 AC 03/27 PO 0803 Propranolol HCl 20 MG TID 03/18 1029 DC 03/25 PO 2132 Simethicone 80 MG Q4P PRN 03/13 1830 AC 03/14 PO 1150 Trazodone HCl 100 MG AT BEDTIME 03/20 2200 AC 03/26 PO 2108 Venlafaxine HCl 112.5 MG DAILY 03/27 1000 AC 03/27 PO 0803 Venlafaxine HCl 75 MG DAILY 03/24 1000 DC 03/25 PO 1113 Vital Signs Date Time Temp Pulse Resp B/P B/P Pulse O2 O2 Flow FiO2 Mean Ox Delivery Rate 03/27 834 98.5 71 137/88 03/27 0803 98.0 64 18 129/90 03/26 2107 64 129/90 03/26 1999 98.0 64 129/90 03/26 1619 98.5 70 18 144/87 03/26 1536 70 144/87 03/26 1213 79 162/104 03/26 1028 98.5 63 18 150/76 MSE: GENERAL: In bed but alert and oriented, good eye contact, fairly-groomed, no apparent distress SPEECH: Moderate rate and volume, normal prosody, fluent MOTOR: No tics, mild tremor, no stereotypy, or abnormal movements MOOD: "I didn't want to talk the other day, but I'm doing okay today." AFFECT: a little feisty but in a good-natured way, mood congruent, fair range , non-labile, well related THOUGHT PROCESS: Logical, linear and goal-directed THOUGHT CONTENT: No SI/HI/AVH/SIB, no apparent grandiosity, paranoia, delusions , obsessions, ruminations COGNITION: No apparent deficit in attention, memory or concentration JUDGMENT: fair INSIGHT: poor ASSESSMENT: A 61-year-old White woman who was admitted to the inpatient psychiatric unit with worsening mood in the setting of multiple psychosocial and interpersonal stressors (the of her son 6 days prior to admission, homelessness, conflict with ex-, poverty, unemployment, and limited social supports). Today, patient appears better engaged with singer songwriter then previous reports, adherent with medications, wanting to wait a couple days before increasing Effexor. Tolerating increase in propranolol. Likely Diagnoses: Unspecified depressive disorder, Unspecified Anxiety disorder, (most likely Adjustment disorder with mixed anxiety and depression) Other Specified Personality Disorder PLAN: -maintain safety, vs tid, q15min checks -continue meds, increase effexor as tolerated -continue plan directed and future oriented Treatment Plan Update: Increase Venlafaxine ER/XR to 112.5 mg once daily in AM Continue trazodone 100 mg nightly Increase Propranolol to 30 mg PO TID (primarily for the elevated BP today but also for her tremors and agitation) Continue Gabapentin 400 mg PO PRN for anxiety if and when necessary Continue 0.5 mg lorazepam for anxiety if and when necessary Continue inpatient psychiatric care: Vital signs, education, and nursing assessments by Nurses and Nurses Aides, Group therapy, Milieu therapy, aftercare/discharge planning by SENIOR RESEARCH MANAGER; evaluation of Roses mental state and medications daily by a psychiatrist PLAN: -maintain safety, vs tid, q15min checks -continue meds -continue plan
[2017-03-27 11:51] VITALS: BP 133/80
[2017-03-27 16:16] VITALS: BP 148/82
[2017-03-27 19:51] VITALS: BP 136/86
--- NOTE | 2017-03-28 00:13 | CP SOUTH PROGRESS NOTE PSYCH ---
Psych (Inpt) Progress Note Progress Note Progress Note: SUBJECTIVE: Patient came to ad writer's office for interview today became quite tearful when talking about situation with son and her ex-. Quite upset that she does not know where her son's body is. Worried about Social Security and housing. Difficult to redirect at times. Supportive therapy provided. Reports that she is having continued difficulty sleeping due to roommate and unit noises at night, requesting increase in trazodone. Denies any side effects to medications. Patient reports she has had diarrhea and changed her diet to toast and coffee, with some improvement. Also reports she vomited twice after receiving an IM Haldol injection a few days ago. No SI/HI/AVH/SIB. Patient with moderate tremor that she attributes to rheumatic fever as a child. OBJECTIVE: Per nursing, pt did slept overnight without any acute events. Pt remained in behavioral control, adherent with staff instructions and medications. VSS. Current Medications Sig/Kirill Start time Last Medication Dose Route Stop Time Status Admin Acetaminophen 650 MG Q6P PRN 03/09 1030 AC 03/26 PO 0716 Al Hydroxide/Mg 30 ML Q4-6 PRN PRN 03/09 1030 AC Hydroxide PO Benztropine Mesylate 1 MG Q6P PRN 03/25 1300 AC PO Cholecalciferol 2,000 IU DAILY 03/09 1022 AC 03/27 PO 0802 Fluphenazine HCl 5 MG Q6P PRN 03/25 1300 AC PO Fluticasone 2 SPRAY AT BEDTIME 03/19 2200 AC 03/23 Propionate NARA 2215 Gabapentin 400 MG Q4P PRN 03/16 1415 AC PO Lorazepam 2 MG Q6P PRN 03/25 1300 AC PO Magnesium Hydroxide 30 ML AT BEDTIME NEED.. 03/09 1030 AC PO Naproxen 250 MG BID 03/09 1357 AC 03/27 PO 2208 Nicotine 2 MG Q2P PRN 03/09 1030 AC PO Omeprazole 20 MG DAILY AC 03/10 0700 AC 03/28 PO 0658 Propranolol HCl 30 MG TID 03/26 1600 AC 03/27 PO 2207 Simethicone 80 MG Q4P PRN 03/13 1830 AC 03/14 PO 1150 Trazodone HCl 100 MG AT BEDTIME 03/20 2200 AC 03/27 PO 220 Venlafaxine HCl 112.5 MG DAILY 03/27 1000 AC 03/27 PO 0803 Vital Signs Date Time Temp Pulse Resp B/P B/P Pulse O2 O2 Flow FiO2 Mean Ox Delivery Rate 03/28 0754 98.2 62 158/90 03/27 2208 98.5 64 18 136/86 03/27 1951 98.5 64 136/86 03/27 1640 98.5 67 18 148/82 03/27 1616 67 148/82 03/27 1151 61 133/80 03/27 0835 98.5 71 137/88 MSE: GENERAL: Alert and oriented, intense eye contact, tearful during interview, appropriately groomed, in moderate distress due to emotional turmoil of son's . SPEECH: Moderate rate and moderate to loud volume, normal prosody, fluent, pressured at times MOTOR: No tics, significant tremor, no stereotypy MOOD: "I'm a mess." AFFECT: Tearful and visibly upset, mood congruent, constricted range, mildly labile, reasonably well related THOUGHT PROCESS: Circumstantial THOUGHT CONTENT: No SI/HI/AVH/SIB, with ruminations of son's and housing COGNITION: Appears to be mildly impaired JUDGMENT: fair INSIGHT: poor ASSESSMENT: A 61-year-old White woman who was admitted to the inpatient psychiatric unit with worsening mood in the setting of multiple psychosocial and interpersonal stressors (the of her son 6 days prior to admission, homelessness, conflict with ex-, poverty, unemployment, and limited social supports). Today, patient was quite upset during interview but otherwise in behavioral control on the unit, tolerating medications. Patient with complicated social situation that will require significant social work intervention. Likely Diagnoses: Unspecified depressive disorder, Unspecified Anxiety disorder, (most likely Adjustment disorder with mixed anxiety and depression) Other Specified Personality Disorder PLAN: -maintain safety, vs tid, q15min checks -continue meds, increase effexor as tolerated -Increase trazodone to 150 mg by mouth daily at bedtime for insomnia -continue plan
[2017-03-28 07:54] VITALS: BP 158/90
[2017-03-28 12:16] VITALS: BP 148/82
[2017-03-28 15:55] VITALS: BP 145/94
[2017-03-28 20:09] VITALS: BP 154/50
[2017-03-29 07:57] VITALS: BP 147/96
--- NOTE | 2017-03-29 10:37 | CP SOUTH PROGRESS NOTE PSYCH ---
Psych (Inpt) Progress Note Progress Note Vitals Blood Pressure 147/96 03/29/17 0757 Pulse Rate 72 03/29/17 0757 Temperature 98.0 03/29/[address] Olivas's note RN, Group Therapist, VOCATIONAL REHAB CONSULTANT, and Psychiatrist discussed Lorelei's progress on the inpatient unit and reviewed her care plan. Mental Status Examination: Lorelei Wang) was alert, and oriented to time, place, and person, less irritable/angry and refused to answer more than a couple of questions, denied thinking of suicide, denied thoughts of violence or homicide, denied hallucinating, and there were no delusions during our brief conversation. Progress: A 61-year-old White woman who was admitted to the inpatient psychiatric unit with worsening mood in the setting of multiple psychosocial and interpersonal stressors (the of her son 6 days prior to admission, homelessness, conflict with ex-, poverty, unemployment, and limited social supports). She made minimal progress so far. Lorelei's likely Diagnoses are: Unspecified depressive disorder, Unspecified Anxiety disorder, (most likely Adjustment disorder with mixed anxiety and depression) Other Specified Personality Disorder Lorelei's Idenfied Risk factors for suicide and/or violence /homicide are: 1) Psychosocial Stress (poverty and homelessness), 2) History of mood disorder, 3) Recent homicidal threats before admission Protective and risk mitigating factors: (1) No current suicidal ideation (2) no homicidal ideation against the tenants in her son's house since her admission to [facility] (3) The patient does not have command hallucinations, 4) does not have a terminal illness The patient does not have a chronic severe pain And the patient does not have history of suicide attempts in the past The patient has not had the issues of alcohol lately she seemed to be goal- directed and future oriented Treatment Plan Update: Continue Venlafaxine ER/XR 112.5 mg once daily in AM Continue trazodone 100 mg nightly Continue Propranolol 30 mg PO TID (primarily for the elevated BP today but also for her tremors and agitation) Continue Gabapentin 400 mg PO PRN for anxiety if and when necessary Continue 0.5 mg lorazepam for anxiety if and when necessary Continue inpatient psychiatric care: Vital signs, education, and nursing assessments by Nurses and Nurses' Aides, Group therapy, Milieu therapy, aftercare/discharge planning by VOCATIONAL REHAB CONSULTANT; evaluation of Lorelei's mental state and medications daily by a psychiatrist
[2017-03-29 12:08] VITALS: BP 135/74
--- NOTE | 2017-03-29 15:23 | SOCIAL WORKER PROG NOTE PSYCH ---
Social Work Progress Note Progress Note Called Ghazala Contreras (test case developer) at [facility] and left a message. Continuing to also speak with Lizbeth Ramos about potential respite openings. She said there is nothing opening right now at [facility]. Sonam shared that she hasn't been going to groups, because the other female peer has been going. She also told me that she had shut down at the end of last week, because she doesn't want to continue to be rejected or hear news that people can't help her. She became very tearful during our conversation. She remains angry with family and frustrated that she doesn't know what has happened with her son's body. I told her we can call police tomorrow to see what morgue he was brought to. She said she really just wants some peace of mind as to where his body is. She also reiterated that if her ex made any decisions without her she was going to fifi him. She was very hyperverbal, irritable, and tearful throughout the entire conversation.
[2017-03-29 16:02] VITALS: BP 156/95
[2017-03-29 19:57] VITALS: BP 133/83
[2017-03-30 07:37] VITALS: BP 152/86
[2017-03-30 11:51] VITALS: BP 137/75
--- NOTE | 2017-03-30 13:21 | CP SOUTH PROGRESS NOTE PSYCH ---
Psych (Inpt) Progress Note Progress Note Vital Signs Date Time Temp Pulse Resp B/P B/P Pulse O2 O2 Flow FiO2 Mean Ox Delivery Rate 03/30 1151 61 137/75 03/30 0801 97.6 64 18 152/86 03/30 0737 97.6 64 152/86 03/29 2121 66 136/84 03/29 1956 98.1 68 133/83 RN, Group Therapist, PSYCHOLOGY CLINICIAN, and Psychiatrist discussed Lorelei's progress on the inpatient unit and reviewed her care plan. Mental Status Examination: Lorelei Wang) was alert. She was oriented to time, place, and person. She remains irritable/angry. She denied thinking of suicide, denied thoughts of violence or homicide, denied hallucinating, and there were no delusions during our brief conversation. Progress: A 61-year-old White woman who was admitted to the inpatient psychiatric unit with worsening mood in the setting of multiple psychosocial and interpersonal stressors (the of her son 6 days prior to admission, homelessness, conflict with ex-, poverty, unemployment, and limited social supports). She made minimal progress so far. Lorelei's likely Diagnoses are: Unspecified depressive disorder, Unspecified Anxiety disorder, (most likely Adjustment disorder with mixed anxiety and depression) Other Specified Personality Disorder Lorelei's Idenfied Risk factors for suicide and/or violence /homicide are: 1) Psychosocial Stress (poverty and homelessness), 2) History of mood disorder, 3) Recent homicidal threats before admission Protective and Risk-Mitigating Factors: (1) No current suicidal ideation (2) No homicidal ideation against the tenants in her son's house since her admission to [facility] (3) She does not have command hallucinations. (4) does not have a terminal illness (5) She does not have a chronic severe pain And the patient does not have history of suicide attempts in the past The patient has not had the issues of alcohol lately she seemed to be goal- directed and future oriented Treatment Plan Update: Continue Venlafaxine ER/XR 112.5 mg once daily in AM Continue trazodone 100 mg nightly Change Propranolol to propranolol-LA 60 mg BID (primarily for the elevated BP today but also for her tremors and agitation) Continue Gabapentin 400 mg PO PRN for anxiety if and when necessary Continue 0.5 mg lorazepam for anxiety if and when necessary Continue inpatient psychiatric care: Vital signs, education, and nursing assessments by Nurses and Nurses' Aides, Group therapy, Milieu therapy, aftercare/discharge planning by PSYCHOLOGY CLINICIAN; evaluation of Lorelei's mental state and medications daily by a psychiatrist
[2017-03-30 15:42] VITALS: BP 135/90
[2017-03-30 19:54] VITALS: BP 133/82
--- NOTE | 2017-03-30 20:46 | SOCIAL WORKER PROG NOTE PSYCH ---
Social Work Progress Note Progress Note SW met with pt to discuss plan to contact Ike HADLEY to identify where her son's body was brought. Ike HADLEY ([phone]) provided contact information for Operations Support Analyst's Office [phone] in [place]. Pt son's body is being held there until a next of kin makes arrangements with a home to retrieve the body. Cause of is still pending toxology report. Pt aware and will discuss further with SW. Pt also focused on her housing needs and financial difficulties. SW discussed with her possibly making a referral for [facility] case management support services. Pt reports being amenable to assistance from [facility] and [facility].
[2017-03-31 07:31] VITALS: BP 133/81
--- NOTE | 2017-03-31 08:04 | CP SOUTH PROGRESS NOTE PSYCH ---
Psych (Inpt) Progress Note Progress Note Vital Signs Date Time Temp Pulse Resp B/P 03/31 0731 98.2 65 133/81 03/30 2159 97.7 68 18 133/82 03/30 1954 97.7 68 133/82 03/30 1542 69 135/90 03/30 1151 61 137/75 RN, Group Therapist, SOCIAL MEDIA STRATEGIST, and Psychiatrist discussed Lorelei's progress on the inpatient unit and reviewed her care plan. Mental Status Examination: The patient was alert. She was oriented to time, place, and person. She remains irritable/angry. She denied thinking of suicide, denied thoughts of violence or homicide, denied hallucinating, and there were no delusions during our brief conversation. Progress: Lorelei is a 61-year-old White woman who was admitted to the inpatient psychiatric unit with worsening mood in the setting of multiple psychosocial and interpersonal stressors (homelessness, conflict with ex-, poverty, unemployment). She made minimal progress so far. Lorelei's likely Diagnoses are: Unspecified depressive disorder, Unspecified Anxiety disorder, (most likely Adjustment disorder with mixed anxiety and depression) Other Specified Personality Disorder Lorelei's Idenfied Risk factors for suicide and/or violence /homicide are: (1) Psychosocial Stress (poverty and homelessness), (2) History of mood disorder, (3) Recent homicidal threats before admission Protective and Risk-Mitigating Factors: (1) No current suicidal ideation (2) No current homicidal ideation against the tenants in her son's house since her admission to [facility] (3) She does not have command hallucinations. (4) does not have a terminal illness (5) She does not have a chronic severe pain (6) the patient does not have history of suicide attempts in the past The patient has not had the issues of alcohol lately she seemed to be goal- directed and future oriented Treatment Plan Update: Increase Venlafaxine ER/XR to 150 mg once daily in AM Continue trazodone 100 mg nightly Continue propranolol-LA 60 mg BID Continue Gabapentin 400 mg PO PRN for anxiety if and when necessary Continue 0.5 mg lorazepam for anxiety if and when necessary Continue safety checks every 15 minutes Continue Vital signs, education, and nursing assessments by Nurses and Nurses' Aides, Group therapy, Milieu therapy, aftercare/discharge planning by SOCIAL MEDIA STRATEGIST; evaluation of Lorelei's mental state and medications daily by a psychiatrist
--- NOTE | 2017-03-31 11:37 | SOCIAL WORKER PROG NOTE PSYCH ---
Social Work Progress Note Progress Note COMPLETED [facility] ONLINE REVIEW - CHECK WEB IN AM FOR NEXT REVIEW DATE.
[2017-03-31 11:59] VITALS: BP 143/81
[2017-03-31 15:54] VITALS: BP 145/84
--- NOTE | 2017-03-31 16:12 | SOCIAL WORKER PROG NOTE PSYCH ---
Social Work Progress Note Progress Note Called Ghazala Siddiqui general operations manager at [facility] back with Sonam present. Ghazala shared that she was trying to have someone from [employer] maybe speak with Sonam about what her options are legally. She also stated she had some information on housing that she might be able to apply for. Ghazala started talking about how Sonam needs to apply for social security but she can't take her if she's going to get riled up and not be able to communicate appropriately. This got Sonam agitated and the conversation started gettting louder and more upset to the point that I couldn't hear anything being said by Ghazala. I tried to intervene at that point, but Sonam got up and left my office abruptly. Ghazala plans to come and see Sonam on Wednesday around 2:30-3pm. She doesn't have any ideas as to where Sonam is going to go as she presents with an irritable edge and it poses a problem.
[2017-03-31 19:03] VITALS: BP 139/93
--- NOTE | 2017-04-01 07:38 | CP SOUTH PROGRESS NOTE PSYCH ---
Psych (Inpt) Progress Note Progress Note Vital Signs Date Time Temp Pulse Resp B/P 04/01 0933 97.9 58 18 134/66 04/01 0744 97.9 58 134/66 03/31 2115 76 140/86 03/31 1903 98.3 74 139/93 03/31 1554 71 145/84 RN, Group Therapist, ACCOUNTANT MANAGER, and Psychiatrist discussed Lorelei's progress on the inpatient unit and reviewed her care plan. Mental Status Examination: Lorelei was irritable, loud and angry with [facility]. She was alert and oriented to time, place, and person. She denied thinking of suicide, denied thoughts of violence or homicide, denied hallucinating, and there were no delusions during our brief conversation. Progress: Lorelei is a 61-year-old White woman who was admitted to the inpatient psychiatric unit with worsening mood in the setting of multiple psychosocial and interpersonal stressors (homelessness, conflict with ex-, poverty, unemployment). She made minimal progress so far. Lorelei's likely diagnoses are: (1) Unspecified Depressive disorder, (2) Unspecified Anxiety disorder, (most likely Adjustment disorder with mixed anxiety and depression) Other Specified Personality Disorder Risk factors for suicide and/or violence /homicide are: (1) Psychosocial Stress (poverty and homelessness), (2) History of mood disorder, (3) Recent homicidal threats before admission Protective and Risk-Mitigating Factors: (1) No current suicidal ideation (2) No current homicidal ideation against the tenants in her son's house since her admission to [facility] (3) She does not have command hallucinations. (4) does not have a terminal illness (5) She does not have a chronic severe pain (6) the patient does not have history of suicide attempts in the past (7) has not had the issues of alcohol lately she seemed to be goal-directed and future oriented Treatment Plan Update: Continue venlafaxine ER/XR 150 mg once daily Continue trazodone 100 mg nightly Continue propranolol-LA 60 mg BID Continue gabapentin 400 mg PO PRN for anxiety if and when necessary Continue 0.5 mg lorazepam for anxiety if and when necessary Continue safety checks every 15 minutes Nurses and Nurses' Aides: Vital signs, education, and nursing assessments Group therapy, Milieu therapy, aftercare/discharge planning by ACCOUNTANT MANAGER; evaluation of Lorelei's mental state and medications daily by a psychiatrist
[2017-04-01 07:44] VITALS: BP 134/66
--- NOTE | 2017-04-01 12:18 | SOCIAL WORKER PROG NOTE PSYCH ---
Social Work Progress Note Progress Note Alteration Inspector met with Lorelei in her room today. Initially she did not wish to speak with advertising copywriter but did eventually agree. Lorelei presented as angry and tearful. She recounted yesterday's phone meeting with Alda Moreau and Ghazala Becerril. Lorelei stated that she felt that Ghazala and Alda do not want her to "have any peace" since they do not want Lorelei to speak with her and will not permit her to leave the hospital for a few hours to go get her son's body and make arrangements. She then spoke about the costs of a , and how the neighbor downstairs keeps telling her how it will cost $5,000-$7,000, but that she knows that it will only cost about $2,500. Alteration Inspector tried to explain to Lorelei that the reason Ghazala may have tried to focus on the issue of housing is because Lorelei can not leave the hospital without having somewhere to go. Additionally advertising copywriter explained that patients are not allowed to leave the hospital for a few hours and come back, as they are considered to be discharged once they leave. Lorelei then stated that she was "done talking" and told advertising copywriter to leave.
[2017-04-01 15:51] VITALS: BP 135/79
[2017-04-01 19:50] VITALS: BP 155/95
[2017-04-01 22:33] VITALS: BP 188/66
[2017-04-02] VITALS (8 sets, daily range): BP systolic 139–180; BP diastolic 85–105
--- NOTE | 2017-04-02 09:01 | CP SOUTH PROGRESS NOTE PSYCH ---
Psych (Inpt) Progress Note Progress Note Vital Signs Date Time Temp Pulse Resp B/P 04/02 0851 98.1 64 18 180/93 04/02 0758 98.1 64 180/93 04/02 0625 97.6 60 175/92 04/02 0427 97.3 62 169/85 04/02 0205 65 177/104 04/02 0014 98.1 63 174/100 04/01 2310 97.9 74 18 188/66 04/01 2233 74 188/66 04/01 1950 97.9 69 155/95 RN, Group Therapist, RUG CLEANER, and Psychiatrist discussed Lorelei's progress on the inpatient unit and reviewed her care plan. Mental Status Examination: Lorelei remains irritable, she refused medications a couple of times including BP medications, therefore BP may be up angry with Care and staff at [place] (a specific nurse from last night), she was alert and oriented to time, place, and person. She denied thinking of suicide, denied thoughts of violence or homicide, denied hallucinating, and there were no delusions during our brief conversation. Progress: Lorelei is a 61-year-old White woman who was admitted to the inpatient psychiatric unit with worsening mood in the setting of multiple psychosocial and interpersonal stressors (homelessness, conflict with ex-, poverty, unemployment). She made minimal progress so far. Lorelei's likely diagnoses are: (1) Unspecified Depressive Disorder, (2) Unspecified Anxiety disorder, (most likely Adjustment disorder with mixed anxiety and depression) (3) Other Specified Personality Disorder, mixed traits of narcissistic, antisocial, and borderline nature Risk factors for suicide and/or violence /homicide are: (1) Psychosocial Stress (poverty and homelessness), (2) History of mood disorder, (3) Recent homicidal threats before admission Protective and Risk-Mitigating Factors: (1) No current suicidal ideation (2) No current homicidal ideation against the tenants in her son's house since her admission to [facility] (3) She does not have command hallucinations. (4) does not have a terminal illness (5) She does not have a chronic severe pain (6) the patient does not have history of suicide attempts in the past (7) has not had the issues of alcohol lately she seemed to be goal-directed and future oriented Treatment Plan Update: Reduce venlafaxine ER/XR back to 112.5 mg once daily because of elevated BP Continue trazodone 100 mg nightly Change Propranolol-LA to 120 mg once in AM Continue gabapentin 400 mg PO PRN for anxiety if and when necessary Continue 0.5 mg lorazepam for anxiety if and when necessary Continue safety checks every 15 minutes Nurses and Nurses' Aides: Vital signs, education, and nursing assessments Group therapy, Milieu therapy, aftercare/discharge planning by RUG CLEANER; evaluation of Lorelei's mental state and medications daily by a psychiatrist evaluation of Lorelei's mental state and medications daily by a psychiatrist
--- NOTE | 2017-04-02 13:28 | SOCIAL WORKER PROG NOTE PSYCH ---
Social Work Progress Note Progress Note Sonam seemed to be sulking in the lounge most of the morning. When I approached her this afternoon she was hesitant to say hello, but then did engage. I told her I would not be part of the meeting with her binder caser this afternoon. She had an irritable/ angry edge to her and had several complaints about staff and how staff talk to her. When I reflected back how she was appearing- she said "I'm just frustrated." She isn't happy about staying here. I told her she could be discharged, but where would she be staying? She said she had no where. We talked about the no freeze options being the only thing possibly available. She doesn't want to do that and doesn't feel it would be good for her mental health or a person of her age. I did give her some information and an application for social security half-way benefits. She seemed upset over the idea that her binder caser may have an application for housing in the [facility]. I told her that she needs to be open minded and just listen to what her cm has to present.
[2017-04-03 07:42] VITALS: BP 124/84
--- NOTE | 2017-04-03 11:33 | CP SOUTH PROGRESS NOTE PSYCH ---
Psych (Inpt) Progress Note Progress Note Include the following elements, when applicable: Involvement in the active treatment of the patient with behavioral observations of the patient and the patient's response to the treatment. Review of the ongoing treatment process in the context of the treatment plan. Indication of how multi-disciplinary staff members are carrying out the treatment plan. Plans for future interventions and recommendations for revision of the treatment plan. Liaison with other physicians/providers. Progress Note: Pt spoke at length again about her housing situation and the situation with her son, who , belongings and home. She feels that the executor of the will is allow things to be ?stolen or sold. She is very frustrated by this. She notes that she is apply to get her correction funds early so that she can go to respite and then get an apartment. She was very upset and irritable around the ability to assess her belongings, which are being stored, while here. She became agitated but very redirected. Denies SI or HI. Current Medications Sig/Kirill Start time Last Medication Dose Route Stop Time Status Admin Acetaminophen 650 MG Q6P PRN 03/09 1030 AC 04/01 PO 1539 Al Hydroxide/Mg 30 ML Q4-6 PRN PRN 03/09 1030 AC Hydroxide PO Benztropine Mesylate 1 MG Q6P PRN 03/25 1300 AC PO Cholecalciferol 2,000 IU DAILY 03/09 1022 AC 04/03 PO 0857 Divalproex Sodium 250 MG 0800,1400,2000 04/03 0800 AC 04/03 PO 0857 Divalproex Sodium 250 MG TID 04/02 1154 DC PO Fluphenazine HCl 5 MG Q6P PRN 03/25 1300 AC PO Fluticasone 2 SPRAY AT BEDTIME 03/19 2200 AC 03/29 Propionate NARA 2121 Gabapentin 400 MG .STK-MED ONE 04/02 2109 DC PO 04/02 2110 Gabapentin 400 MG Q4P PRN 03/16 1415 AC 04/02 PO 2110 Magnesium Hydroxide 30 ML AT BEDTIME NEED.. 03/09 1030 AC PO Naproxen 250 MG BID 03/09 1357 AC 04/03 PO 0857 Nicotine 2 MG Q2P PRN 03/09 1030 AC PO Propranolol HCl 120 MG DAILY 04/03 1000 AC 04/03 PO 0857 Propranolol HCl 60 MG ONCE ONE 04/02 1200 DC 04/02 PO 04/02 1201 1309 Propranolol HCl 60 MG BID 03/30 2200 DC 04/02 PO 0851 Simethicone 80 MG Q4P PRN 03/13 1830 AC 03/14 PO 1150 Trazodone HCl 150 MG AT BEDTIME 03/28 2200 AC 04/02 PO 2112 Venlafaxine HCl 112.5 MG DAILY 04/03 1000 AC 04/03 PO 0857 Venlafaxine HCl 150 MG DAILY 03/31 1000 DC 04/02 PO 0851 Vital Signs Date Time Temp Pulse Resp B/P B/P Pulse O2 O2 Flow FiO2 Mean Ox Delivery Rate 04/03 0857 97.7 66 18 124/84 04/03 0742 97.7 66 124/84 04/02 1954 98.9 66 166/91 04/02 1544 63 139/91 04/02 1309 98.1 67 18 180/105 MSE General appearance: good hygiene and grooming; Attitude: cooperative; Eye contact: appropriate; Movement: no psychomotor agitation or slowing; Speech: nl fluency, nl rate/rhythm, nl volume, nl prosody; Mood: "pissed" Affect: extremely irritable, flat, appropriate, constricted, non-labile, congruent; Thought process: linear and goal-directed; Thought content: denied SI or HI, no paranoid ideation; Perception: denied hallucinations- auditory, visual, does not appear to be responding to internal stimuli; I/J: limited A/P: Pt with MDD, anxiety, and multiple psychosocial issues largely related to housing. -Continue current medication regimen -Encourage integration into the milieu
[2017-04-03 12:06] VITALS: BP 134/76
[2017-04-03 15:38] VITALS: BP 131/57
[2017-04-03 19:51] VITALS: BP 136/87
[2017-04-04 07:58] VITALS: BP 141/78
[2017-04-04 12:05] VITALS: BP 138/72
--- NOTE | 2017-04-04 13:17 | CP SOUTH PROGRESS NOTE PSYCH ---
Psych (Inpt) Progress Note Progress Note Include the following elements, when applicable: Involvement in the active treatment of the patient with behavioral observations of the patient and the patient's response to the treatment. Review of the ongoing treatment process in the context of the treatment plan. Indication of how multi-disciplinary staff members are carrying out the treatment plan. Plans for future interventions and recommendations for revision of the treatment plan. Liaison with other physicians/providers. Progress Note: Pt notes that she feels like "crap" today. She feels that she does not need any meds, in particular mood stablization. Not redirectable. Denies SI or HI. Current Medications Sig/Kirill Start time Last Medication Dose Route Stop Time Status Admin Acetaminophen 650 MG Q6P PRN 03/09 1030 AC 04/04 PO 0800 Al Hydroxide/Mg 30 ML Q4-6 PRN PRN 03/09 1030 AC Hydroxide PO Benztropine Mesylate 1 MG Q6P PRN 03/25 1300 AC PO Cholecalciferol 2,000 IU DAILY 03/09 1022 AC 04/04 PO 1021 Divalproex Sodium 250 MG 0800,1400,04/03 0800 AC 04/04 PO 0800 Fluphenazine HCl 5 MG Q6P PRN 03/25 1300 AC PO Fluticasone 2 SPRAY AT BEDTIME 03/19 2200 AC 03/29 Propionate NARA 2121 Gabapentin 400 MG Q4P PRN 03/16 1415 AC 04/02 PO 2110 Magnesium Hydroxide 30 ML AT BEDTIME NEED.. 03/09 1030 AC PO Naproxen 250 MG BID 03/09 1357 AC 04/04 PO 1021 Nicotine 2 MG Q2P PRN 03/09 1030 AC PO Propranolol HCl 120 MG DAILY 04/03 1000 AC 04/04 PO 1021 Simethicone 80 MG Q4P PRN 03/13 1830 AC 03/14 PO 1150 Trazodone HCl 150 MG AT BEDTIME 03/28 2200 AC 04/03 PO 2109 Venlafaxine HCl 112.5 MG DAILY 04/03 1000 AC 04/04 PO 1022 Vital Signs Date Time Temp Pulse Resp B/P B/P Pulse O2 O2 Flow FiO2 Mean Ox Delivery Rate 04/04 1205 63 138/72 04/04 1021 70 141/78 04/04 0758 98.0 70 141/78 02/17 1951 98.3 67 136/87 04/03 1538 68 131/57 MSE General appearance: good hygiene and grooming; Attitude: cooperative; Eye contact: appropriate; Movement: no psychomotor agitation or slowing; Speech: nl fluency, nl rate/rhythm, nl volume, nl prosody; Mood: "crap and crappy" Affect: extremely irritable, flat, appropriate, constricted, non-labile, congruent; Thought process: linear and goal-directed; Thought content: denied SI or HI, no paranoid ideation; Perception: denied hallucinations- auditory, visual, does not appear to be responding to internal stimuli; I/J: limited A/P: Pt with MDD, anxiety, and multiple psychosocial issues largely related to housing. Of note, marked irritablity at times. -Continue current medication regimen -Encourage integration into the milieu
[2017-04-04 15:27] VITALS: BP 134/96
[2017-04-04 20:09] VITALS: BP 143/91
[2017-04-05 07:40] VITALS: BP 125/85
[2017-04-05 11:49] VITALS: BP 155/76
--- NOTE | 2017-04-05 13:50 | CP SOUTH PROGRESS NOTE PSYCH ---
Psych (Inpt) Progress Note Progress Note Vital Signs Date Time Temp Pulse Resp B/P 04/05 1149 60 155/76 04/05 0850 96.9 65 18 125/85 04/05 0740 96.9 65 125/85 04/04 2009 97.6 61 143/91 04/04 1527 60 134/96 RN, Group Therapist, SUPERINTENDENT MAINTENANCE, and Psychiatrist discussed Lorelei's progress on the inpatient unit and reviewed her care plan. Mental Status Examination: Lorelei remains irritable but less so than last week alert and oriented to time, place, and person. She denied thinking of suicide, denied thoughts of violence or homicide, denied hallucinating, and there were no delusions during our brief conversation. Progress: Lorelei is a 61-year-old White woman who was admitted to the inpatient psychiatric unit with worsening mood in the setting of multiple psychosocial and interpersonal stressors (homelessness, conflict with ex-, poverty, unemployment). She made minimal progress so far. Lorelei's likely diagnoses are: (1) Unspecified Depressive Disorder, (2) Unspecified Anxiety disorder, (most likely Adjustment disorder with mixed anxiety and depression) (3) Other Specified Personality Disorder, mixed traits of narcissistic, antisocial, and borderline nature Risk factors for suicide and/or violence /homicide are: (1) Psychosocial Stress (poverty and homelessness), (2) History of mood disorder, (3) Recent homicidal threats before admission Protective and Risk-Mitigating Factors: (1) No current suicidal ideation (2) No current homicidal ideation against the tenants in her son's house since her admission to [facility] (3) She does not have command hallucinations. (4) does not have a terminal illness (5) She does not have a chronic severe pain (6) the patient does not have history of suicide attempts in the past (7) has not had the issues of alcohol lately she seemed to be goal-directed and future oriented Treatment Plan Update: D/C Depakote because of increased tremors Continue venlafaxine ER/XR back to 112.5 mg once daily because of elevated BP Continue trazodone 150 mg nightly Propranolol-LA 120 mg once in AM Continue gabapentin 400 mg PO PRN for anxiety if and when necessary Continue 0.5 mg lorazepam for anxiety if and when necessary Continue safety checks every 15 minutes Nurses and Nurses' Aides: Vital signs, education, and nursing assessments Group therapy, Milieu therapy, aftercare/discharge planning by SUPERINTENDENT MAINTENANCE; evaluation of Lorelei's mental state and medications daily by a psychiatrist
[2017-04-05 15:44] VITALS: BP 140/88
--- NOTE | 2017-04-05 16:39 | SOCIAL WORKER PROG NOTE PSYCH ---
Social Work Progress Note Progress Note Sonam told me she was expecting her oil field caser today. She was disappointed she didn't come by. She was supposed to help her with her social security paperwork. Sonam said she filled most of it out herself and was just looking to review it with Ghazala. I told Sonam it's a holiday, so she may not be in today. I told Sonam I would look it over with her if Ghazala doesn't come by soon. She is hoping to start receiving benefits at the start of July. She is open to staying in a penitentiary if need be for a few months. She will call 211 tomorrow to schedule a new CAN Assessment. Sonam was a little less irritable and tearful today. Repetative in the information she discusses about money and her ex-. She was hoping she had some phone numbers in her suitcase being stored here. After checking with nursing, it was determined that the numbers she thought may be in storage were not there. Gave her [facility]'s phone number to call her oil field caser in the morning.
[2017-04-05 19:53] VITALS: BP 117/73
[2017-04-06 07:42] VITALS: BP 129/85
[2017-04-06 12:11] VITALS: BP 132/63
--- NOTE | 2017-04-06 12:39 | CP SOUTH PROGRESS NOTE PSYCH ---
Psych (Inpt) Progress Note Progress Note Vital Signs Date Time Temp Pulse Resp B/P Pulse O2 O2 Flow FiO2 Ox Delivery Rate 04/06 1211 83 132/63 04/06 0817 97.2 73 18 129/85 04/06 0742 97.2 73 129/85 04/05 1953 98.7 66 117/73 RN, Group Therapist, GEOLOGY FACULTY MEMBER, and Psychiatrist discussed Lorelei's progress on the inpatient unit and reviewed her care plan. Mental Status Examination: Lorelei denied thinking of suicide or wishing , she was less irritable She was alert and oriented to time, place, and person. She denied thinking of violence or homicide, denied hallucinating, and there were no delusions during our brief conversation. Assessment & Progress: Lorelei is a 61-year-old White woman who was admitted to the inpatient psychiatric unit on march 09, 2017 with worsening mood in the setting of multiple psychosocial and interpersonal stressors (homelessness, conflict with ex-, poverty, unemployment). She made minimal progress so far. Lorelei's likely diagnoses are: (1) Unspecified Depressive Disorder, (2) Unspecified Anxiety disorder, (most likely Adjustment disorder with mixed anxiety and depression) (3) Other Specified Personality Disorder, mixed traits of narcissistic, antisocial, and borderline nature Treatment Plan Update: Continue venlafaxine ER/XR back to 112.5 mg once daily because of elevated BP Continue trazodone 150 mg nightly Continue Propranolol-LA 120 mg once in AM Continue gabapentin 400 mg PO PRN for anxiety if and when necessary Continue 0.5 mg lorazepam for anxiety if and when necessary Continue safety checks every 15 minutes Nurses and Nurses' Aides: Vital signs, education, and nursing assessments Group therapy, Milieu therapy, aftercare/discharge planning by GEOLOGY FACULTY MEMBER; evaluation of Lorelei's mental state and medications daily by a psychiatrist
--- NOTE | 2017-04-06 14:00 | SOCIAL WORKER PROG NOTE PSYCH ---
Social Work Progress Note Progress Note Spoke with Mayela from [facility], the insurance review with Dr. Spencer was denied. We have 10 days to appeal.
[2017-04-06 15:34] VITALS: BP 132/65
--- NOTE | 2017-04-06 16:12 | SOCIAL WORKER PROG NOTE PSYCH ---
Social Work Progress Note Progress Note Assisted Sonam with calling 211. She set up a CAN Assessment at [facility] in [place] for 04/08. She will need to be there between 11:30-1: 30pm. She feels ok going to that appt. She is familiar with the area and the bus. I am trying to coordinate with Care to see if they may be able to help her. I will also inform Jose Bryant from [facility].
[2017-04-06 19:55] VITALS: BP 130/74
[2017-04-07 07:43] VITALS: BP 137/87
--- NOTE | 2017-04-07 08:18 | CP SOUTH PROGRESS NOTE PSYCH ---
Psych (Inpt) Progress Note Progress Note Vital Signs: 04/07 0743 97.3 60 137/87 Date Time Temp Pulse Resp B/P 04/07 0743 97.3 60 137/87 04/06 1955 99.0 79 130/74 04/06 1534 67 132/65 Inthe past 24 hours, Lorelei had an incident (yesterday, early afternoon) of screaming at one of the activity therapists and one of the nurses She seemed calmer today, denied thinking of suicide or wishing , she was less irritable She was alert & oriented to time, place, and person. She denied thinking of violence or homicide. Lorelei denied hallucinating, and there were no delusions during our brief conversation. Assessment & Progress: Lorelei is a 61-year-old White woman who was admitted to the inpatient psychiatric unit on March 09, 2017 with worsening mood in the setting of multiple psychosocial and interpersonal stressors (homelessness, conflict with ex-, poverty, unemployment). She made minimal progress so far. Lorelei's likely diagnoses are: (1) Unspecified Depressive Disorder, (2) Unspecified Anxiety disorder, (most likely Adjustment disorder with mixed anxiety and depression) (3) Other Specified Personality Disorder, mixed traits of narcissistic, antisocial, and borderline nature Current Medications Current Medications Sig/Kirill Start time Last Medication Dose Route Stop Time Status Admin Cholecalciferol 2,000 IU DAILY 03/09 1022 AC 04/06 PO 0819 Fluticasone 2 SPRAY AT BEDTIME 03/19 2200 AC 03/29 Propionate NAAR 2121 Gabapentin 400 MG 0800,1600,2200 04/05 1600 AC 04/06 PO 2113 Naproxen 250 MG BID 03/09 1357 AC 04/06 PO 2113 Treatment Plan Update: Continue venlafaxine ER/XR 112.5 mg once daily because of elevated BP Continue trazodone 150 mg nightly Continue Propranolol-LA 120 mg once in AM Continue gabapentin 400 mg three times daily Continue naprosyn 250 mg BID Nurses and Nurse' Aides: Vital signs, education, and nursing assessments Group, Art, and Activity Therapists: Group and Milieu therapy, DIGITAL MARKETING APPRENTICE: aftercare/discharge planning psychiatrist: evaluation of Lorelei's mental state and medications daily
--- NOTE | 2017-04-07 09:57 | SOCIAL WORKER PROG NOTE PSYCH ---
Social Work Progress Note Progress Note TC - Judy Peralta [facility]
[2017-04-07 11:56] VITALS: BP 131/78
--- NOTE | 2017-04-07 14:18 | SOCIAL WORKER PROG NOTE PSYCH ---
Social Work Progress Note Progress Note Spoke with Ghazala -family caseworker at [facility]. Ghazala said she will have Chloé Mejia tack picker Sonam to help her get to [facility]. Ghazala asked if she were returning after her assessment? I told her no and that she will be discharged when she leaves the unit. Ghazala has been informed that if [facility] has no beds, they will refer her to a no freeze. Sonam and I met to discuss her plan for tomorrow. I had to reiterate that she won't be coming back to the hospital. She seemed to think she could if there was no bed. She got a little tearful about the idea of going to a no freeze. Empathized with her concerns. Told her I would call [facility] and the [facility] just to check in and see if they would have a bed for her. She remains hopeful that it will be temporary until she can get Social Security in place in a few months. Reviewed some of the paperwork that she started to fill out for Social Security benefits. Called [employer] and left a message with the rollout manager. Called the [facility]- there is no female openings.
[2017-04-07 15:42] VITALS: BP 143/85
[2017-04-07 19:51] VITALS: BP 144/77
[2017-04-08 07:35] VITALS: BP 121/78
[2017-04-08 08:54] VITALS: BP 121/78
[2017-04-08] MEDS ORDERED: EFFEXOR XR75 M1 PO (09:17)
[2017-04-08] MEDS ORDERED: INDERAL LA60 M1 PO (09:17)
[2017-04-08] MEDS ORDERED: VITAMIN D31000 UNI2 PO (09:17)
[2017-04-08] MEDS ORDERED: FLUTICASONE PRO16 GM NAS (09:17)
[2017-04-08] MEDS ORDERED: NAPROXEN250 M1 PO (09:17)
[2017-04-08] MEDS ORDERED: GABAPENTIN400 M2 PO (09:17)
[2017-04-08] MEDS ORDERED: TRAZODONE HCL100 M1 PO (09:17)
--- NOTE | 2017-04-08 10:09 | Patient Discharge Instructions ---
Psych Discharge Inst General Discharge Information Reason for Admission: homicidal threats Psy Discharge Primary Diag+ Unspecified Depressive Di Unspecified Anxiety Disor Psy Discharge Secondary Diag+ Other Specified Personali Summary Tests/Major Procedures no significant abnormalities Studies Pending at DC: none Patient Instructions Contact Information Your Psychiatrist on [facility] was Iraj Land MD * If you are experiencing an emergency related to this hospitalization, please call [phone] to contact the treating psychiatrist or the psychiatrist-on- call. * To Request a copy of your medical records, please contact the Medical Records Department at [phone]. * To request results of studies pending at the time of discharge, please call [phone]. * Continue your Medications until directed to stop by your Healthcare provider. General Medication Information Please continue to take your new medications and your continued home medications , unless otherwise indicated on your discharge medication list, or unless directed by your MD or BPO SPECIALIST to stop them. Special Instructions Diet Regular Activity Normal - Tobacco Use Treatment Offered Post DC Medications Offered: Not Applicable Post DC Tobacco Treatment Plan: Not Applicable - EtOH/Drug Use D/O Treatment Offered Post DC Medications Offered: NA-No EtOH/Drug Use D/O Post DC EtOH/SubAbuse TX Plan: NA-No EtOH/Drug Use D/O Metabolic Screening ([X]) Not Applicable, patient not on a neuroleptic. Advance Directives Does the Patient have Medical Advance Directives No/Refused further info Does Pt have Psychiatric Advance Directives? No/Refused further info Does Patient have a Designated Surrogate Decision Maker: No Information About Psychiatric Advance Directives Provided? Yes Discharge Plan Post Hospital Treatment Plan: CAN assessment then [facility] Advance Directives Does the Patient have Medical Advance Directives No/Refused further info Does Pt have Psychiatric Advance Directives? No/Refused further info Does Patient have a Designated Surrogate Decision Maker: No Information About Psychiatric Advance Directives Provided? Yes
--- NOTE | 2017-04-08 10:52 | SOCIAL WORKER PROG NOTE PSYCH ---
Social Work Progress Note Progress Note Sonam seemed to ready to go this morning. Future oriented. Talked about following up on her son's wake/ cremation if possible. Marian family preservation caseworker at [facility] came to get her around 11am. She gave Sonam a bus pass and tokens for the bus so she could get to her appt. at [facility] tomorrow. Wished her well and encouraged her to be safe.
--- NOTE | 2017-04-08 11:14 | SOCIAL WORKER PROG NOTE PSYCH ---
Social Work Progress Note Faxed Referral(s) Referred To: [facility] Transition of Care Documents sent: Health Summary Faxed to: Care Fax #: [phone] Faxed by: Alda Moreau Date faxed: 04/08/17 Time Faxed: [phone]
--- NOTE | 2017-04-09 08:42 | CP SOUTH PROGRESS NOTE PSYCH ---
Psych (Inpt) Progress Note Progress Note Lorelei was alert & oriented to time, place, and person. She was calm & denied thinking of suicide or wishing , she was less irritable She denied thinking of violence or homicide. Lorelei denied hallucinating, and there were no delusions during our brief conversation. Assessment & Progress: Lorelei is a 61-year-old White woman who was admitted to the inpatient psychiatric unit on March 09, 2017 with worsening mood and homicidal threats. She had multiple stressors ( of son a week earlier, homelessness, conflict with ex-, poverty, unemployment). She made minimal progress on the inpatient unit because 95% of her focus was on how to protect her inheritance (1 /2 of her late son's house) and finding housing. 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
== END 2017-04-08 11:19 | DRG 754 ==
LOC: ERH 15:03 → CP SOUTH 03-09 10:16 → ERHI 03-09 10:16 → ENRESERV 03-09 10:43 → ENTRNSPT 03-09 12:12 → CP SOUTH 03-09 12:15 → EDTRNSPT 03-09 12:17 → EDTRNSPTSTS 03-09 12:17 → CP SOUTH 03-09 12:29 → CMPTRNSPT 03-09 12:30 → CP SOUTH 03-09 15:50
PROVIDERS: Physician Assistant Medical
DX: F32.9 Major depressive disorder, single episode, unspecified (principal); F41.9 Anxiety disorder, unspecified; F60.9 Personality disorder, unspecified
CPT/HCPCS: 80307; 81003; 93005; 93010; G0463; G0480

== ENCOUNTER 2017-04-12 16:03 | Emergency (ER) | payer OTHER ==
[~2017-04-12] VITALS: Ht 160 cm; Wt 79.4 kg
[~2017-04-12 16:03] MED LIST changes: +EFFEXOR XR75 M1 PO; +FLUTICASONE PRO16 GM NAS; +FLUTICASONE PRO16 GM NASB; +GABAPENTIN400 M2 PO; +INDERAL LA60 M1 PO; +NAPROXEN250 M1 PO; +OMEPRAZOLE20 M2 PO; +TRAZODONE HCL100 M1 PO; +VITAMIN D2000 UNIT PO; +VITAMIN D31000 UNI2 PO
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
[2017-04-12 21:32] VITALS: BP 150/92
== END 2017-04-12 21:33 ==
LOC: ERH 16:03
DX: Z91.14 Patient's other noncompliance with medication regimen (principal)

== ENCOUNTER 2017-06-01 16:54 | Emergency (ER) | payer OTHER ==
[~2017-06-01] VITALS: Ht 160 cm; Wt 81.6 kg
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
[2017-06-01 19:55] VITALS: BP 162/86
== END 2017-06-01 20:02 ==
LOC: ERH 16:54
DX: S09.90XA Unspecified injury of head, initial encounter (principal); W18.09XA Striking against other object with subsequent fall, initial encounter; Y92.9 Unspecified place or not applicable; Y93.9 Activity, unspecified; R51 Headache; M54.2 Cervicalgia